=== PATIENT | female | born 1955 | race Caucasian/White ===

== ENCOUNTER 2023-09-24 08:33 | Day surgery (SDC) | payer OTHER, SELFPAY ==
[2023-09-24 08:58] VITALS: BP 121/58; PULSE 76; RESP 18; TEMP 36.2; O2SAT 99
[2023-09-24] MEDS: LACTATED RINGERS 1,000 ML 42 ML IV (09:05)
--- NOTE | 2023-09-24 09:25 | PM.HP.1 ---
History of Present Illness History of Present Illness Date Patient Seen: 09/24/23 Chief complaint: EGD Narrative: History of cirrhosis with need for variceal screening and possible banding [facility] Medical History (Updated 09/24/23 @ 08:09 by Angie Magallon, RN) Gallstones Normal colonoscopy Normocytic anemia Alcoholic cirrhosis Hepatitis B Family History (Updated 09/24/23 @ 08:13 by Angie Magallon, RN) Other Colon cancer Stomach cancer Social History Smoking Status: Never smoker alcohol intake: never Meds Home Medications and Allergies Home Medications Medication Instructions Recorded Confirmed Type ibuprofen 600 mg PO PRN PRN Pain (Scale 09/24/23 09/24/23 History Score 1-3) milk thistle 1 tab PO DAILY 09/24/23 09/24/23 History vit D3-folic [id number] 1 tab PO DAILY 09/24/23 09/24/23 History vitamin E 1 tab PO DAILY 09/24/23 09/24/23 History Allergies Allergy/AdvReac Type Severity Reaction Status Date / Time sulfamethoxazole Allergy Mild Hives Verified 09/24/23 08:57 [From Bactrim] trimethoprim [From Bactrim] Allergy Mild Hives Verified 09/24/23 08:57 Exam Vital Signs (past 8 hours): - 09/24/23 08:58 Temperature 97.1 F L Pulse Rate 76 Respiratory Rate 18 Blood Pressure 121/58 L Pulse Oximetry 99 Oxygen Delivery Method Room Air Oxygen Delivery Method Room Air Narrative Exam Narrative: Oropharynx free of lesions Chest clear to auscultation percussion Cardiac exam reveals no S3 or murmur Assessment & Plan Assessment & Plan narrative: History of cirrhosis need for variceal screening risks, benefits, alternatives have been explained. Banding to be performed if medium to large varices are found.
--- NOTE | 2023-09-24 09:26 | P.OP.EGD_ITS ---
Operative Date/Time/Diagnoses Date of procedure: 09/24/23 Pre-op diagnosis: See indication and findings Procedure & Clinicians Study performed: EGD Indications: Cirrhosis, assessment for variceal banding Surgeon: Mya Partida Procedure Notes Procedure in detail: After informed consent was obtained the patient was placed in left lateral decubitus position. The video upper scope was placed into the oropharynx and with the patient's help swallowed into the esophagus. The esophagus stomach and duodenum were carefully examined. On withdrawal, retroflexed view the GE junction was performed. The scope was removed. The patient tolerated procedure well. Blood loss none Complications none Sedation mac Findings 1. Normal esophagus 2. Streaky gastric erythema particularly in the antrum biopsies taken to rule out Helicobacter 3. Normal duodenal bulb and sweep Will await biopsy results. Patient should try famotidine 40 mg p.o. q.day and follow-up with her primary GI provider through the [facility]
[2023-09-24 10:08] VITALS: BP 124/63; PULSE 86; RESP 17; TEMP 36.5; O2SAT 98
[2023-09-24 10:14] VITALS: BP 114/65; PULSE 83; RESP 16; O2SAT 100
[2023-09-24 10:18] VITALS: BP 114/58; PULSE 84; RESP 13; O2SAT 100
[2023-09-24 10:25] VITALS: BP 121/60; PULSE 81; RESP 16; TEMP 36.6; O2SAT 99
--- NOTE | 2023-09-24 10:30 | SUR.PHASEII ---
Unable to discharge pt at this time. Awaiting report and disposition from Dr Partida.
--- NOTE | 2023-09-24 10:38 | PM.OP.EGD ---
Operative Date/Time/Diagnoses Date of procedure: 09/24/23 Pre-op diagnosis: See indication and findings Procedure & Clinicians Study performed: EGD Indications: Cirrhosis rule out esophageal Surgeon: Mya Partida Procedure Notes Procedure in detail: After informed consent was obtained the patient was placed in left lateral decubitus position. The video upper scope was placed into the oropharynx and with the patient's help swallowed into the esophagus. The esophagus stomach and duodenum were carefully examined. On withdrawal, retroflexed view the GE junction was performed. The scope was removed. The patient tolerated procedure well. Blood loss none Complications none Sedation mac Findings 1. Normal esophagus with perhaps this slightest hint of grade 1 varices 2. Normal stomach without evidence of gastric varices 3. Normal duodenal bulb and sweep Patient should follow-up via hepatology and our office. Follow-up EGD should be in 1 year
== END 2023-09-24 10:44 | disposition home or self-care (01) ==
PROVIDERS: PCP Physician Assistant; Referring Provider Internal Medicine Gastroenterology; Visit Provider Internal Medicine Gastroenterology
PROC: 0DJ08ZZ Inspection of Upper Intestinal Tract, Via Natural or Artificial Opening Endoscopic (ICD-10-PCS; CPT 43235; principal; 2023-09-24 09:30)
DX: K70.30 Alcoholic cirrhosis of liver without ascites (principal); D64.9 Anemia, unspecified; F10.20 Alcohol dependence, uncomplicated
CPT/HCPCS: 43235; J2704

== ENCOUNTER → 2024-02-04 10:59 | Outpatient (CLI) | payer OTHER, SELFPAY | LOC: WC 11:04 | PROVIDERS: PCP Physician Assistant; Referring Provider Physician Assistant; Visit Provider Surgery | DX: T81.89XA Other complications of procedures, not elsewhere classified, initial encounter (principal); S81.801A Unspecified open wound, right lower leg, initial encounter; D68.4 Acquired coagulation factor deficiency; R60.0 Localized edema | CPT/HCPCS: 11042; 87070; 87075; 87077; 87186; 87205; 99203; 99214 ==

== ENCOUNTER → 2024-02-12 15:28 | Outpatient (CLI) | payer OTHER, SELFPAY | PROVIDERS: PCP Physician Assistant; Referring Provider Physician Assistant; Visit Provider Surgery | DX: T81.41XA Infection following a procedure, superficial incisional surgical site, initial encounter (principal); S81.801A Unspecified open wound, right lower leg, initial encounter; L98.8 Other specified disorders of the skin and subcutaneous tissue; L08.89 Other specified local infections of the skin and subcutaneous tissue; R60.0 Localized edema | CPT/HCPCS: 11042 ==

== ENCOUNTER → 2024-02-16 10:59 | Outpatient (CLI) | payer OTHER, SELFPAY | PROVIDERS: PCP Physician Assistant; Referring Provider Physician Assistant; Visit Provider Surgery | DX: S81.801A Unspecified open wound, right lower leg, initial encounter (principal); L98.8 Other specified disorders of the skin and subcutaneous tissue; R60.0 Localized edema; K74.60 Unspecified cirrhosis of liver; D68.4 Acquired coagulation factor deficiency | CPT/HCPCS: 11042 ==

== ENCOUNTER → 2024-02-25 10:45 | Outpatient (CLI) | payer OTHER, SELFPAY | PROVIDERS: PCP Physician Assistant; Referring Provider Physician Assistant; Visit Provider Surgery | DX: S81.801A Unspecified open wound, right lower leg, initial encounter (principal); L98.8 Other specified disorders of the skin and subcutaneous tissue; R60.0 Localized edema; K70.30 Alcoholic cirrhosis of liver without ascites; D68.4 Acquired coagulation factor deficiency | CPT/HCPCS: 11042 ==

== ENCOUNTER → 2024-02-27 06:48 | Outpatient (CLI) | payer OTHER, SELFPAY ==
--- NOTE | 2024-02-27 07:00 | DI.US.S_ITS ---
PROCEDURE: US ARTERIAL DUPLEX LE RT INDICATIONS: NON-HEALING ULCER RIGHT CALF TECHNIQUE: Color and pulse Doppler interrogation was performed of the right lower extremity arterial system, with image documentation. COMPARISON: None. FINDINGS: Triphasic waveforms are seen throughout with normal velocities and no postobstructive waveforms including the imaged common femoral, deep femoral, superficial femoral, popliteal posterior tibial and anterior tibial arteries. Mild any atherosclerotic plaque seen IMPRESSION: No hemodynamically significant stenosis seen Dictated by: Danny Baker M.D. on 02/27/2024 at 14:55 Approved by: Danny Baker M.D. on 02/27/2024 at 14:57
== END ==
LOC: US 06:49
PROVIDERS: PCP Physician Assistant; Referring Provider Surgery; Visit Provider Surgery
DX: L97.919 Non-pressure chronic ulcer of unspecified part of right lower leg with unspecified severity (principal)
CPT/HCPCS: 93926

== ENCOUNTER 2024-03-02 20:19 | Inpatient (IN) | payer OTHER, MEDICARE, SELFPAY ==
[2024-03-02] VITALS (18 sets, daily range): BP systolic 93–119; BP diastolic 44–56; PULSE 81–94; RESP 12–19; TEMP 37.4–39.1; O2SAT 94–98; BMI 34.5
--- NOTE | 2024-03-02 20:22 | ED_ITS ---
HPI - Sepsis General Chief Complaint: Fever Evaluation Sepsis Infection Criteria Present: Suspected New Infection Sepsis Onset Time: 18:00 Associated Symptoms: fever and other (altered mental status) Narrative: 68-year-old female with history of alcoholic cirrhosis with grade 1 esophageal varices presents by EMS from home for altered mental status. History is obtained by EMS as patient is lethargic and opens her eyes to voice, but is very slow to respond to questions and frequently drifts off in the middle of conversation. EMS states that has been appeared to be quite intoxicated when they arrived at the residence. The has been told him that in the last 3 hours patient's mental status had precipitously declined. Patient was obviously jaundiced, told EMS that this is the patient's normal color. EMS measured an oral temperature of 101? EN route. Patient History Medical History Gallstones Normal colonoscopy Normocytic anemia Alcoholic cirrhosis Hepatitis B Family History Other Colon cancer Stomach cancer Social History household members: spouse and children Smoking Status: Never smoker alcohol intake: never Smoking Status: Never smoker Substance Use Type: does not use Exam Initial Vital Signs Initial Vital Signs: Vital Signs Pulse Rate 94 H 03/02/24 20:22 Blood Pressure 109/49 L 03/02/24 20:22 Pulse Oximetry 95 03/02/24 20:22 Const: Somnolent, arouses to voice, ill-appearing, obviously jaundiced, edematous Eyes: EOMI, obvious scleral icterus Cardiac: regular rate, regular rhythm RESP: unlabored, clear bilaterally, no wheezing GI: Soft, nontender, nondistended MSK: 5 x 2 x 1 cm wound in right lower extremity with granulated tissue, no surrounding erythema. Diffuse anasarca Skin: Warm, Dry, wound in right lower extremity as described above, no surrounding erythema or fluctuance to suggest acute infection Neuro: AO x1, CN II-XII grossly intact, moves all extremities Course Orders Ordered: ED Orders 03/02/24 20:22 CT head/brain wo con Stat XR chest 1V Stat EKG-12 Lead Stat 03/02/24 20:24 Ammonia (NH3) Stat 03/02/24 20:30 Complete Blood Count AUTO DIFF Stat Comprehensive Metabolic Panel Stat Ethanol (ETOH) Stat Lactate (Lactic Acid) Stat NT-proBNP (BNP-Adult 18+) Stat PTT Partial Thromboplastin Sukh Stat Procalcitonin Stat Prothrombin Time INR Stat Troponin & CK Cardiac Panel Stat 03/02/24 20:35 Respiratory Panel (Film Array) Stat 03/02/24 20:44 CT abdomen pelvis w con Stat 03/02/24 21:04 Ictotest Urine Stat Urinalysis and Microscopic Stat Urine Culture Stat 03/02/24 21:18 Blood Culture Stat Sodium Chloride (Normal Saline 0.9%) 1,000 mls @ 100 mls/hr IV CONT TONY Last Admin: 03/03/24 02:34 Dose: 100 mls/hr Documented By: MARY Ceftriaxone Sodium 2,000 mg/ (Sodium Chloride) 100 mls @ 200 mls/hr IV Q24H TONY Naloxone HCl (Naloxone 0.4 Mg/Ml Vial) 0.2 mg IV Q2MIN PRN PRN Reason: Opiate Reversal Discontinued Medications Acetaminophen (Acetaminophen 325 Mg Tablet) 650 mg PO NOW ONE Stop: 03/02/24 20:36 Last Admin: 03/02/24 21:10 Dose: 650 mg Documented By: RICHARD Furosemide (Furosemide 40 Mg/4 Ml Vial) 40 mg IV NOW ONE Stop: 03/02/24 21:51 Last Admin: 03/02/24 22:07 Dose: 40 mg Documented By: RICHARD Ceftriaxone Sodium 2,000 mg/ (Sodium Chloride) 100 mls @ 200 mls/hr IV NOW ONE Stop: 03/02/24 20:23 Last Infusion: 03/02/24 22:19 Dose: Infused Documented By: Admin: 03/02/24 21:40 Dose: 200 mls/hr Documented By: RICHARD Vital Signs Vital signs: Vital Signs - 8 hr 03/02/24 20:22 03/02/24 20:22 03/02/24 20:26 Temperature 102.3 F H Pulse Rate 94 H 94 H Respiratory Rate 17 Blood Pressure 109/49 L 109/49 L Pulse Oximetry 95 94 Oxygen Delivery Method Room Air 03/02/24 20:30 03/02/24 21:00 03/02/24 21:06 Temperature Pulse Rate 92 H 86 Respiratory Rate 19 15 Blood Pressure 119/56 L Pulse Oximetry 95 98 Oxygen Delivery Method 03/02/24 21:06 03/02/24 21:10 03/02/24 21:30 Temperature 102.3 F H Pulse Rate 90 90 Respiratory Rate 16 Blood Pressure Pulse Oximetry 98 96 Oxygen Delivery Method 03/02/24 21:43 03/02/24 21:43 03/02/24 21:45 Temperature Pulse Rate 86 Respiratory Rate 15 Blood Pressure 107/51 L 98/47 L Pulse Oximetry 94 Oxygen Delivery Method 03/02/24 21:45 03/02/24 22:00 03/02/24 22:00 Temperature Pulse Rate 86 86 Respiratory Rate 16 14 Blood Pressure 98/46 L Pulse Oximetry 97 96 Oxygen Delivery Method 03/02/24 22:15 03/02/24 22:15 03/02/24 22:18 Temperature 99.3 F Pulse Rate 85 Respiratory Rate 14 Blood Pressure 98/47 L Pulse Oximetry 98 Oxygen Delivery Method 03/02/24 22:30 03/02/24 22:30 03/02/24 22:45 Temperature Pulse Rate 83 84 Respiratory Rate 14 14 Blood Pressure 95/45 L Pulse Oximetry 97 96 Oxygen Delivery Method 03/02/24 22:45 03/02/24 23:00 03/02/24 23:00 Temperature Pulse Rate 82 Respiratory Rate 14 Blood Pressure 94/44 L 93/44 L Pulse Oximetry 97 Oxygen Delivery Method 03/02/24 23:15 03/02/24 23:15 03/02/24 23:30 Temperature Pulse Rate 82 82 Respiratory Rate 12 13 Blood Pressure 98/46 L Pulse Oximetry 96 97 Oxygen Delivery Method Room Air 03/02/24 23:30 03/02/24 23:45 03/02/24 23:45 Temperature Pulse Rate 81 Respiratory Rate 13 Blood Pressure 96/46 L 95/44 L Pulse Oximetry 97 Oxygen Delivery Method 03/03/24 00:00 03/03/24 00:00 03/03/24 00:15 Temperature Pulse Rate 81 Respiratory Rate 12 Blood Pressure 96/46 L 100/46 L Pulse Oximetry 96 Oxygen Delivery Method Room Air 03/03/24 00:15 03/03/24 00:30 03/03/24 00:30 Temperature 98.3 F Pulse Rate 80 80 Respiratory Rate 13 14 Blood Pressure 99/47 L Pulse Oximetry 97 95 Oxygen Delivery Method Room Air Room Air 03/03/24 00:45 09/11/24 00:45 Temperature Pulse Rate 80 Respiratory Rate Blood Pressure 93/44 L Pulse Oximetry 96 Oxygen Delivery Method Room Air Sepsis Evaluation (ED) Level 1 - Infection Sepsis Infection Criteria Present: Suspected New Infection Level 2 - SIRS Sepsis SIRS Criteria Present: Temperature > 101.0 or < 96.8 F, WBC < 4k or > 12k or Bands > 10% and Pulse > 90 bpm Response It is my opinion that his patient have a likely infectious etiology for meeting sepsis criteria: Does Fluid calculation based on 30 mL/kg within 1hr of criteria: N/A Antibiotics initiated within 1 hr of Sepis dx: Yes Tissue Perfusion Reassessed within 6 hrs of infusion start time: Yes Date of Tissue Perfusion Reassessment completed: 03/02/24 Time Tissue Perfusion Reassessment completed: 22:00 MDM - Sepsis Differential Diagnosis Possible source sepsis: pulmonary, genitourinary and wound Lab Data 03/02/24 20:30 03/02/24 20:30 Labs: Lab Results 03/02/24 03/02/24 03/02/24 Range/Units 20:24 20:30 20:35 WBC 17.2 H (4.5-11.0) X10^3/uL RBC 1.96 L (4.0-5.2) X10^6/uL Hgb 8.4 L (12.0-16.0) g/dL Hct 23.4 L (36-46) % MCV 119.3 H (80-100) fL MCH 43.0 H (26-34) PG MCHC 36.0 (30-36) % RDW 15.5 H (11.6-14.8) % Plt Count 96 L (150-400) X10^3/uL Neut % (Auto) Not Reportable Lymph % (Auto) Not Reportable Grant % (Auto) Not Reportable Eos % (Auto) Not Reportable Baso % (Auto) Not Reportable Lymph # (Auto) Not Reportable Grant # (Auto) Not Reportable Baso # (Auto) Not Reportable Total Counted 100 Seg Neutrophils % 86.0 H (38-70) % Band Neutrophils % 7.0 (3-7) % Lymphocytes % (Manual) 4.0 L (25-45) % Eosinophils % (Manual) 1.0 L (2-4) % Metamyelocytes % 2.0 H (-0) % Neutrophils # (Manual) 38141 H (4811-2643) /uL RBC Morphology See below Macrocytosis 2+ H PT 24.3 H (9.4-12.5) SECONDS INR 2.1 H (0.9-1.3) APTT 39 H (25.1-36.5) SECONDS Sodium 119 L* (137-145) mmol/L Potassium 5.1 (3.4-5.1) mmol/L Chloride 91 L (98-107) mmol/L Carbon Dioxide 25 (22-32) mmol/L BUN 27 H (7-17) mg/dL Creatinine 0.58 (0.52-1.04) mg/dL Estimated GFR > 60 (>60) mL/min BUN/Creatinine Ratio 46.6 H (6-22) Glucose 95 (80-110) mg/dL Lactate 1.6 (0.7-2.1) mmol/L Calcium 8.9 (8.4-10.2) mg/dL Total Bilirubin 17.4 H (0.2-1.3) mg/dL AST 72 H (14-36) IU/L ALT 39 H (<35) IU/L Alkaline Phosphatase 110 (38-126) U/L Ammonia 15 (9-30) umol/L Total Creatine Kinase 33 (30-135) U/L Troponin I 0.013 (0.01-0.034) ng/mL NT-Pro-B Natriuret Pep 559 H (<125) pg/mL Total Protein 6.8 (6.3-8.2) g/dL Albumin 3.1 L (3.5-5.0) g/dL Globulin 3.7 (1.7-4.1) g/dL Albumin/Globulin Ratio 0.8 L (1.0-2.8) Procalcitonin 0.357 (<0.5) ng/mL Urine Color Urine Appearance Urine pH (4.5-8.0) Ur Specific [place] (1.000-1.035) Urine Protein (Negative) Urine Glucose (UA) (Negative) g/dL Urine Ketones (NEGATIVE) Urine Occult Blood (Negative) Urine Nitrate (Negative) Urine Bilirubin (NEGATIVE) Ur Bilirubin Confirm (Negative) Urine Urobilinogen (0.2) E.U./dL Ur Leukocyte Esterase (NEGATIVE) Urine RBC (0-5/HPF) Urine WBC (0-5/HPF) Ur Squamous Epith Cells (0-5/HPF) Urine Bacteria (None) Ur Culture Indicated? Vol Urine Centrifuged Ethyl Alcohol < 10 ( - 10) mg/dL Chlamy pneumoniae PCR Not detected (Not Detect) Adenovirus (PCR) Not detected (Not Detect) B.parapertussis DNA PCR Not detected (Not Detecte) Coronavirus OC43 (PCR) Not detected (Not Detect) Coronavirus HKU1 (PCR) Not detected (Not Detect) Coronavirus 229E (PCR) Not detected (Not Detect) SARS-CoV-2 (PCR) Detected H (Not Detecte) Coronavirus NL63 (PCR) Not detected (Not Detect) Human Metapneumovir PCR Not detected (Not Detect) Influenza Type A (PCR) Not detected (Not Detect) Influenza Type B (PCR) Not detected (Not Detect) M. pneumoniae (PCR) Not detected (Not Detect) Parainfluenza 1 (PCR) Not detected (Not Detect) Parainfluenza 2 (PCR) Not detected (Not Detect) Parainfluenza 3 (PCR) Not detected (Not Detect) Parainfluenza 4 (PCR) Not detected (Not Detect) RSV (PCR) Not detected (Not Detect) Entero/Rhino (PCR) Not detected (Not Detect) 03/02/24 Range/Units 21:04 WBC (4.5-11.0) X10^3/uL RBC (4.0-5.2) X10^6/uL Hgb (12.0-16.0) g/dL Hct (36-46) % MCV (80-100) fL MCH (26-34) PG MCHC (30-36) % RDW (11.6-14.8) % Plt Count (150-400) X10^3/uL Neut % (Auto) Lymph % (Auto) Grant % (Auto) Eos % (Auto) Baso % (Auto) Lymph # (Auto) Grant # (Auto) Baso # (Auto) Total Counted Seg Neutrophils % (38-70) % Band Neutrophils % (3-7) % Lymphocytes % (Manual) (25-45) % Eosinophils % (Manual) (2-4) % Metamyelocytes % (-0) % Neutrophils # (Manual) (7162-8922) /uL RBC Morphology Macrocytosis PT (9.4-12.5) SECONDS INR (0.9-1.3) APTT (25.1-36.5) SECONDS Sodium (137-145) mmol/L Potassium (3.4-5.1) mmol/L Chloride (98-107) mmol/L Carbon Dioxide (22-32) mmol/L BUN (7-17) mg/dL Creatinine (0.52-1.04) mg/dL Estimated GFR (>60) mL/min BUN/Creatinine Ratio (6-22) Glucose (80-110) mg/dL Lactate (0.7-2.1) mmol/L Calcium (8.4-10.2) mg/dL Total Bilirubin (0.2-1.3) mg/dL AST (14-36) IU/L ALT (<35) IU/L Alkaline Phosphatase (38-126) U/L Ammonia (9-30) umol/L Total Creatine Kinase (30-135) U/L Troponin I (0.01-0.034) ng/mL NT-Pro-B Natriuret Pep (<125) pg/mL Total Protein (6.3-8.2) g/dL Albumin (3.5-5.0) g/dL Globulin (1.7-4.1) g/dL Albumin/Globulin Ratio (1.0-2.8) Procalcitonin (<0.5) ng/mL Urine Color Yellow Urine Appearance Clear Urine pH 5.0 (4.5-8.0) Ur Specific [place] 1.010 (1.000-1.035) Urine Protein Negative (Negative) Urine Glucose (UA) Negative (Negative) g/dL Urine Ketones Negative (NEGATIVE) Urine Occult Blood Trace-intact (Negative) Urine Nitrate Positive H (Negative) Urine Bilirubin 2+ H (NEGATIVE) Ur Bilirubin Confirm Positive H (Negative) Urine Urobilinogen 2.0 H (0.2) E.U./dL Ur Leukocyte Esterase Negative (NEGATIVE) Urine RBC 0-1/hpf (0-5/HPF) Urine WBC 0-1/hpf (0-5/HPF) Ur Squamous Epith Cells 0-1 /hpf (0-5/HPF) Urine Bacteria Occasional (0-1) (None) Ur Culture Indicated? Specimen cultured Vol Urine Centrifuged 10ml (spun) Ethyl Alcohol ( - 10) mg/dL Chlamy pneumoniae PCR (Not Detect) Adenovirus (PCR) (Not Detect) B.parapertussis DNA PCR (Not Detecte) Coronavirus OC43 (PCR) (Not Detect) Coronavirus HKU1 (PCR) (Not Detect) Coronavirus 229E (PCR) (Not Detect) SARS-CoV-2 (PCR) (Not Detecte) Coronavirus NL63 (PCR) (Not Detect) Human Metapneumovir PCR (Not Detect) Influenza Type A (PCR) (Not Detect) Influenza Type B (PCR) (Not Detect) M. pneumoniae (PCR) (Not Detect) Parainfluenza 1 (PCR) (Not Detect) Parainfluenza 2 (PCR) (Not Detect) Parainfluenza 3 (PCR) (Not Detect) Parainfluenza 4 (PCR) (Not Detect) RSV (PCR) (Not Detect) Entero/Rhino (PCR) (Not Detect) Imaging Data Chest x-ray: Radiologist's Impression: PROCEDURE: XR CHEST 1V INDICATIONS: sepsis/ams TECHNIQUE: One view of the chest was acquired. COMPARISON: Outside Film, CR, XR CHEST 1 VIEW, 07/08/2023, 19:51. FINDINGS: Surgical changes and devices: None. Lungs and pleura: There is pulmonary vascular congestion. Blunting of right costophrenic angle is seen, suggestive of small right pleural effusion. Ill- defined airspace opacities in bilateral perihilar and infrahilar region are seen concerning for bilateral multilobar infiltrates. No pneumothorax. Mediastinum: Mediastinal contours appear normal. Heart size is enlarged. Bones and chest wall: No suspicious bony lesions. Overlying soft tissues appear unremarkable. IMPRESSION: Cardiomegaly and mild congestion with small right pleural effusion and suggestion of bilateral perihilar and infrahilar infiltrates. No pneumothorax. Dictated by: Jared Dykes M.D. on 03/02/2024 at 20:57 Approved by: Jared Dykes M.D. on 03/02/2024 at 20:58 CT scan - head: Radiologist's Impression: PROCEDURE: CT HEAD/BRAIN WO CON INDICATIONS: AMS TECHNIQUE: Noncontrast 4.5 mm thick angled axial sections acquired from the foramen magnum to the vertex, with coronal and sagittal reformats. For radiation dose reduction, the following was used: automated exposure control, adjustment of mA and/or kV according to patient size. COMPARISON: Outside Film, CT, CT HEAD WITHOUT CONTRAST, 07/09/2023, 1:20. FINDINGS: Image quality: Diagnostic. CSF spaces: Basal cisterns are patent. No extra-axial fluid collections. The ventricles are symmetric in size and shape. Brain: No intracranial bleeds or masses. There is cerebral volume loss for age, with resultant ventricular and sulcal prominence. There are periventricular and deep white matter chronic small vessel ischemic changes. There is intracranial internal carotid artery atherosclerosis. Skull and face: Calvarium and visualized facial bones appear intact, without suspicious lesions. Sinuses: Visualized sinuses and mastoids are clear. IMPRESSION: No acute intracranial pathology. Dictated by: Jared Dykes M.D. on 03/02/2024 at 22:34 Approved by: Jared Dykes M.D. on 03/02/2024 at 22:35 CT scan - abdomen/pelvis: Radiologist's Impression: PROCEDURE: CT ABDOMEN PELVIS W CON INDICATIONS: jaundice, ams, ascites? TECHNIQUE: After the administration of intravenous contrast, axial sections acquired from the lung bases to the pubic symphysis. Coronal and sagittal reformats were performed. For radiation dose reduction, the following was used: automated exposure control, adjustment of mA and/or kV according to patient size. COMPARISON: Outside Film, CT, CT ABDOMEN PELVIS WITH CONTRAST, 07/09/2023, 1:22. [facility], CT, CT ABDOMEN PELVIS WITH CONTRAST, 02/22/2024, 12:42. FINDINGS: Image quality: Diagnostic. Lower Chest: Small right pleural effusion is seen, with adjacent right basilar dependent atelectasis. Heart size is enlarged, no pericardial effusion. ABDOMEN: Liver: Again noted are well-circumscribed hypodensities seen scattered in liver parenchyma unchanged in size and appearance from prior studies likely represent hepatic cysts. Lobulated liver contour is seen suggestive of cirrhosis. Gallbladder: Multiple calcified small stones are again noted in dependent portion of gallbladder lumen with gallbladder wall thickening and pericholecystic fluid. Biliary ducts: No biliary dilation. Pancreas: No pancreatic ductal dilatation. Spleen: Size is within normal limits. Adrenal Glands: No adrenal nodules. Kidneys and Ureters: No hydronephrosis. No solid mass. No complex renal cystic lesion which requires follow up. Tiny nonobstructing right renal calculi are seen. Stomach and Bowel: There is no bowel obstruction. No abnormal bowel wall thickening or mesenteric fat stranding. [id number] fecal stasis in the colon is seen. No abscess collection. Peritoneum: No abnormal intraperitoneal fluid. No free air. Ventral Wall: No significant ventral hernia. Generalized anasarca is seen. Abdominal Nodes: No retroperitoneal or mesenteric adenopathy by size criteria. Vessels: Aorta and inferior vena cava are normal in size. Sequelae of cirrhosis is again seen with multiple upper abdominal varices unchanged from prior studies. PELVIS: Pelvic Organs: Unremarkable. Bladder: Fisher catheter is seen in a decompressed urinary bladder. Pelvic Nodes: No enlarged lymph nodes. Miscellaneous: No inguinal hernias are seen. Bones: No aggressive osseous abnormality. IMPRESSION: 1. Cirrhosis with portal hypertension. Multiple likely hepatic cysts unchanged from prior study. 2. Distended gallbladder with multiple gallstones and gallbladder wall thickening as well as pericholecystic fluid unchanged from previous study and is concerning for cholecystitis. Clinical correlation is recommended. 3. Generalized anasarca suggestive of 3rd spacing new since previous study. 4. No bowel obstruction or abnormal bowel wall thickening. No abscess collection. No free fluid or free air. [id number] constipation. No significant ascites fluid. Dictated by: Jared Dykes M.D. on 03/02/2024 at 22:36 Approved by: Jared Dykes M.D. on 03/02/2024 at 22:44 ECG Data Interpretation: Normal sinus rhythm at 85 beats per minute, normal IA, no STEMI MDM Narrative Medical decision making narrative: Very unwell appearing patient with fever and altered mental status for 3 hours. EMS states that told them patient gets her care here at [facility], however there are no previous records and patient currently unable to answer where she has gotten care previously. Patient was obviously jaundiced and edematous. Febrile on arrival with heart rate over 90. Sepsis alert initiated on arrival, broad-spectrum antibiotic coverage with Rocephin ordered. Fluids to be held due to diffuse edema and suspected volume overload. Laboratory work shows WBC count 17.2, hemoglobin 8.4, platelet count 96, INR 2.1, sodium 119, potassium 5.1, creatinine 0.58, T bili 17.4, AST 72, ALT 39, alkaline phosphatase 110, ammonia 15. BNP 5 5 9, procalcitonin 0.357. Chest x- ray shows cardiomegaly and volume overload. CT brain shows no acute abnormalities. CT of the abdomen and pelvis shows distended gallbladder with gallstones ?unchanged from previous study?. Clinical correlation recommended. After fever controlled and antibiotics administered patient is now much more awake and is now responding appropriately to questions. Patient denies any pain whatsoever, and repeat abdominal exam is soft, no reproducible tenderness to palpation. No clinical suspicion for cholecystitis at this time. Patient is now able to tell me that her primary care doctor is through [facility] and that she sees GI doctor Jarrett through [place]. We will attempt to get records to see chronicity of patient's laboratory derangements. 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 Extensive records reviewed from [facility], [facility], and [place]. Most recent laboratory work from 02/22/2024 showed sodium 126, T bili 16, AST 82, ALT 44, alk phos 142, WBC count 9.6, hemoglobin 8.1, INR 1.8, platelet count 91. Patient's sodium does appear to be changed, after going through records patient's baseline sodium appears to be upper 120s, 119 is low for patient. Based on the extensive edema and anasarca seen on CT imaging suspect hypervolemic hyponatremia. Lasix ordered. Patient to be admitted for further treatment of her condition Critical Care Time Critical Care Time Critical Care Time: Yes Total Critical Care Time: 42 Attestation: Liver failure and volume overload with hyponatremia requiring diuresing fluids, extensive record review, frequent hemodynamic reassessments Discharge Plan Departure Patient Disposition: Admitted As Inpatient Clinical Impression: Acute hyponatremia, Jaundice, COVID-19 Admit Date/Time: 03/03/24 00:50 Admit Provider: Tito Daniels
--- NOTE | 2024-03-02 20:22 | EKG_ITS ---
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
--- NOTE | 2024-03-02 20:44 | DI.CT.S_ITS ---
PROCEDURE: CT ABDOMEN PELVIS W CON INDICATIONS: jaundice, ams, ascites? TECHNIQUE: After the administration of intravenous contrast, axial sections acquired from the lung bases to the pubic symphysis. Coronal and sagittal reformats were performed. For radiation dose reduction, the following was used: automated exposure control, adjustment of mA and/or kV according to patient size. COMPARISON: Outside Film, CT, CT ABDOMEN PELVIS WITH CONTRAST, 07/09/2023, 1:22. [facility], CT, CT ABDOMEN PELVIS WITH CONTRAST, 02/22/2024, 12:42. FINDINGS: Image quality: Diagnostic. Lower Chest: Small right pleural effusion is seen, with adjacent right basilar dependent atelectasis. Heart size is enlarged, no pericardial effusion. ABDOMEN: Liver: Again noted are well-circumscribed hypodensities seen scattered in liver parenchyma unchanged in size and appearance from prior studies likely represent hepatic cysts. Lobulated liver contour is seen suggestive of cirrhosis. Gallbladder: Multiple calcified small stones are again noted in dependent portion of gallbladder lumen with gallbladder wall thickening and pericholecystic fluid. Biliary ducts: No biliary dilation. Pancreas: No pancreatic ductal dilatation. Spleen: Size is within normal limits. Adrenal Glands: No adrenal nodules. Kidneys and Ureters: No hydronephrosis. No solid mass. No complex renal cystic lesion which requires follow up. Tiny nonobstructing right renal calculi are seen. Stomach and Bowel: There is no bowel obstruction. No abnormal bowel wall thickening or mesenteric fat stranding. [id number] fecal stasis in the colon is seen. No abscess collection. Peritoneum: No abnormal intraperitoneal fluid. No free air. Ventral Wall: No significant ventral hernia. Generalized anasarca is seen. Abdominal Nodes: No retroperitoneal or mesenteric adenopathy by size criteria. Vessels: Aorta and inferior vena cava are normal in size. Sequelae of cirrhosis is again seen with multiple upper abdominal varices unchanged from prior studies. PELVIS: Pelvic Organs: Unremarkable. Bladder: Fisher catheter is seen in a decompressed urinary bladder. Pelvic Nodes: No enlarged lymph nodes. Miscellaneous: No inguinal hernias are seen. Bones: No aggressive osseous abnormality. IMPRESSION: 1. Cirrhosis with portal hypertension. Multiple likely hepatic cysts unchanged from prior study. 2. Distended gallbladder with multiple gallstones and gallbladder wall thickening as well as pericholecystic fluid unchanged from previous study and is concerning for cholecystitis. Clinical correlation is recommended. 3. Generalized anasarca suggestive of 3rd spacing new since previous study. 4. No bowel obstruction or abnormal bowel wall thickening. No abscess collection. No free fluid or free air. [id number] constipation. No significant ascites fluid. Dictated by: Jared Dykes M.D. on 03/02/2024 at 22:36 Approved by: Jared Dykes M.D. on 03/02/2024 at 22:44
[2024-03-02 20:52] LABS: INR 2.1 (0.9-1.3); Prothrombin Time 24.3 SECONDS (9.4-12.5)
[2024-03-02 20:53] LABS: Hematocrit 23.4 % (36-46); Hemoglobin 8.4 g/dL (12.0-16.0); Mean Corpuscular Volume 119.3 fL (80-100); Platelet Count 96 X10^3/uL (150-400); Red Blood Cell Count 1.96 X10^6/uL (4.0-5.2); Red Cell Distribution Width 15.5 % (11.6-14.8); White Blood Cell Count 17.2 X10^3/uL (4.5-11.0)
[2024-03-02 20:59] LABS: PTT Partial Thromboplastin Tim 39 SECONDS (25.1-36.5)
[2024-03-02 21:03] LABS: Ammonia (NH3) 15 umol/L (9-30)
[2024-03-02 21:03] LABS: Lactate (Lactic Acid) 1.6 mmol/L (0.7-2.1)
[2024-03-02 21:05] LABS: Alanine Aminotransferase 39 IU/L (<35); Albumin 3.1 g/dL (3.5-5.0); Albumin Globulin Ratio 0.8 (1.0-2.8); Alkaline Phosphatase 110 U/L (38-126); Aspartate Aminotransferase 72 IU/L (14-36); BUN Creatinine Ratio 46.6 (6-22); Bilirubin Total 17.4 mg/dL (0.2-1.3); Blood Urea Nitrogen 27 mg/dL (7-17); Calcium 8.9 mg/dL (8.4-10.2); Carbon Dioxide 25 mmol/L (22-32); Chloride 91 mmol/L (98-107); Creatine Kinase 33 U/L (30-135); Estimated Glomerular Filt Rate > 60 mL/min (>60); Ethanol (ETOH) < 10 mg/dL; Globulin 3.7 g/dL (1.7-4.1); Glucose 95 mg/dL (80-110); HEMOLYSIS < 15 (0-50); Potassium 5.1 mmol/L (3.4-5.1); Total Protein 6.8 g/dL (6.3-8.2)
[2024-03-02 21:08] LABS: Sodium 119 mmol/L (137-145)
[2024-03-02 21:09] LABS: Add Manual Diff / Slide Review YES
[2024-03-02] MEDS: ACETAMINOPHEN 325 MG TABLET 650 MG PO (21:10)
[2024-03-02 21:11] LABS: Macrocytosis 2+; Neutrophils Absolute Manual 15996 /uL (3000-5900); Total Cells Counted 100
[2024-03-02 21:15] LABS: NT-proBNP (BNP-Adult 18+) 559 pg/mL (<125); Troponin I 0.013 ng/mL (0.01-0.034)
[2024-03-02 21:20] LABS: Procalcitonin 0.357 ng/mL (<0.5)
[2024-03-02 21:22] LABS: Appearance Urine UA CLEAR; Bilirubin Urine UA 2+ (NEGATIVE); Color Urine UA YELLOW; Glucose Urine UA NEGATIVE (Negative); Ketones Urine UA NEGATIVE (NEGATIVE); Leukocyte Esterase Urine UA NEGATIVE (NEGATIVE); Occult Blood Urine UA TRACE-INTACT (Negative); Protein Urine UA NEGATIVE (Negative)
[2024-03-02 21:32] LABS: Adenovirus Not Detected (Not Detect); B. parapertussis Not Detected (Not Detecte); Bordetella pertussis Not Detected (Not Detect); Chlamydophila pneumoniae Not Detected (Not Detect); Coronavirus 229E Not Detected (Not Detect); Coronavirus HKU1 Not Detected (Not Detect); Coronavirus NL 63 Not Detected (Not Detect); Coronavirus OC43 Not Detected (Not Detect); Human Metapneumovirus Not Detected (Not Detect); Human Rhinovirus/Enterovirus Not Detected (Not Detect); Influenza A Not Detected (Not Detect); Influenza B Not Detected (Not Detect); Mycoplasma pneumoniae Not Detected (Not Detect); Parainfluenza Virus 1 Not Detected (Not Detect); Parainfluenza Virus 2 Not Detected (Not Detect); Parainfluenza Virus 3 Not Detected (Not Detect); Parainfluenza Virus 4 Not Detected (Not Detect); Respiratory Syncytial Virus Not Detected (Not Detect); SARS- CoV-2 Detected (Not Detecte)
[2024-03-02 21:35] LABS: Ictotest Urine Positive (Negative); Nitrite Urine UA POSITIVE (Negative); Urine Volume 10mL (spun)
[2024-03-02 21:36] LABS: Bacteria Urine Occasional (0-1); Culture Indicated Urine Specimen Cultured; RBC Urine 0-1/HPF (0-5/HPF); Squamous Epithelial Cell Urine 0-1 /HPF (0-5/HPF); WBC Urine 0-1/HPF (0-5/HPF)
[2024-03-02] MEDS: cefTRIAXone 2,000 MG in SODIUM CHLORIDE 0.9% 100 ML 200 MG IV (21:40)
[2024-03-02] MEDS: FUROSEMIDE 40 MG/4 ML VIAL IV (22:07)
[2024-03-03] VITALS (54 sets, daily range): BP systolic 82–129; BP diastolic 37–60; PULSE 70–83; RESP 9–22; TEMP 36.5–37.2; O2SAT 93–100; BMI 34.5
--- NOTE | 2024-03-03 00:36 | PC.NURSE ---
Pt being followed by wound care for RIGHT medial calf wound. This RN and provider Miguel look at wound. It measures 5cm long x 2cm wide x 1cm deep. It is packed with blue foam, as before, and redressed with an allevyn. Compression stocking placed back on patient as was prior to looking at wound.
--- NOTE | 2024-03-03 00:59 | PC.NURSE ---
Fisher cath placed by CONSTANTINO Contreras with this RN's assistance at provider Miguel's verbal direction.
[2024-03-03] MEDS: SODIUM CHLORIDE 0.9% 1,000 ML 100 ML IV (02:34)
--- NOTE | 2024-03-03 02:55 | P.HP_ITS ---
History of Present Illness History of Present Illness Date Patient Seen: 03/03/24 Time Patient Seen: 02:55 Chief complaint: Lethargic/fever Narrative: 68 y/o with PMH of alcoholic liver cirrhosis and hepatitis B, presented confused, febrile and diagnosed with Covid 19 and acute on chronic hyponatremia of 119. Workup showing anasarca, cholelithiasis, leukocytosis, hypotension since the arrival to unit. Initially encephalopathic, with normal ammonia level. Denies abdominal pain, chest pain or shortness of breath. CXR shows cardiomegaly, Rt pleural effusion and perihilar infiltrates. Not hypoxemic or tachypneic at rest. Given Lasix and Rocephin in the ED. Admitted with likely hyponatremia, likely CHF, probable PNA, Covid 19 PFSH Medical History (Updated 03/03/24 @ 03:10 by Tito Fong MD) Gallstones Normal colonoscopy Normocytic anemia Alcoholic cirrhosis Hepatitis B Family History Other Colon cancer Stomach cancer Social History household members: spouse and children Smoking Status: Never smoker alcohol intake: never Meds Home Medications and Allergies Home Medications Medication Instructions Recorded Confirmed Type vitamin E 1 tab PO DAILY 09/24/23 03/03/24 History cholecalciferol (vitamin D3) 25 03/03/24 History mcg (1,000 unit) tablet (Vitamin D3) furosemide 40 mg tablet 40 mg PO DAILY 03/03/24 03/03/24 History oxycodone 5 mg tablet 5 mg PO Q4H PRN pain 03/03/24 03/03/24 History spironolactone 50 mg tablet 50 mg 3XW 03/03/24 03/03/24 History Allergies Allergy/AdvReac Type Severity Reaction Status Date / Time sulfamethoxazole Allergy Mild Hives Verified 03/02/24 20:26 [From Bactrim] trimethoprim [From Bactrim] Allergy Mild Hives Verified 03/02/24 20:26 Review of Systems Review of Systems Narrative: Poor historian due to confusion and encephalopathy Cardiovascular Comments: w/o chest pain Respiratory Comments: w/o shortness of breath Gastrointestinal Comments: w/o abdominal pain Genitourinary Comments: w/o dysuria Exam Vital Signs (past 8 hours): - 03/02/24 20:22 03/02/24 20:22 03/02/24 20:26 Temperature 102.3 F H Pulse Rate 94 H 94 H Respiratory Rate 17 Blood Pressure 109/49 L 109/49 L Pulse Oximetry 95 94 Oxygen Delivery Method Room Air Oxygen Flow Rate 03/02/24 20:30 03/02/24 21:00 03/02/24 21:06 Temperature Pulse Rate 92 H 86 Respiratory Rate 19 15 Blood Pressure 119/56 L Pulse Oximetry 95 98 Oxygen Delivery Method Oxygen Flow Rate 03/02/24 21:06 03/02/24 21:10 03/02/24 21:30 Temperature 102.3 F H Pulse Rate 90 90 Respiratory Rate 16 Blood Pressure Pulse Oximetry 98 96 Oxygen Delivery Method Oxygen Flow Rate 03/02/24 21:43 03/02/24 21:43 03/02/24 21:45 Temperature Pulse Rate 86 Respiratory Rate 15 Blood Pressure 107/51 L 98/47 L Pulse Oximetry 94 Oxygen Delivery Method Oxygen Flow Rate 03/02/24 21:45 03/02/24 22:00 03/02/24 22:00 Temperature Pulse Rate 86 86 Respiratory Rate 16 14 Blood Pressure 98/46 L Pulse Oximetry 97 96 Oxygen Delivery Method Oxygen Flow Rate 03/02/24 22:15 03/02/24 22:15 03/02/24 22:18 Temperature 99.3 F Pulse Rate 85 Respiratory Rate 14 Blood Pressure 98/47 L Pulse Oximetry 98 Oxygen Delivery Method Oxygen Flow Rate 03/02/24 22:30 03/02/24 22:30 03/02/24 22:45 Temperature Pulse Rate 83 84 Respiratory Rate 14 14 Blood Pressure 95/45 L Pulse Oximetry 97 96 Oxygen Delivery Method Oxygen Flow Rate 03/02/24 22:45 03/02/24 23:00 03/02/24 23:00 Temperature Pulse Rate 82 Respiratory Rate 14 Blood Pressure 94/44 L 93/44 L Pulse Oximetry 97 Oxygen Delivery Method Oxygen Flow Rate 03/02/24 23:15 03/02/24 23:15 03/02/24 23:30 Temperature Pulse Rate 82 82 Respiratory Rate 12 13 Blood Pressure 98/46 L Pulse Oximetry 96 97 Oxygen Delivery Method Room Air Oxygen Flow Rate 03/02/24 23:30 03/02/24 23:45 03/02/24 23:45 Temperature Pulse Rate 81 Respiratory Rate 13 Blood Pressure 96/46 L 95/44 L Pulse Oximetry 97 Oxygen Delivery Method Oxygen Flow Rate 03/03/24 00:00 03/03/24 00:00 03/03/24 00:15 Temperature Pulse Rate 81 Respiratory Rate 12 Blood Pressure 96/46 L 100/46 L Pulse Oximetry 96 Oxygen Delivery Method Room Air Oxygen Flow Rate 03/03/24 00:15 03/03/24 00:30 03/03/24 00:30 Temperature 98.3 F Pulse Rate 80 80 Respiratory Rate 13 14 Blood Pressure 99/47 L Pulse Oximetry 97 95 Oxygen Delivery Method Room Air Room Air Oxygen Flow Rate 03/03/24 00:45 03/03/24 00:45 03/03/24 01:00 Temperature Pulse Rate 80 Respiratory Rate Blood Pressure 93/44 L 95/46 L Pulse Oximetry 96 Oxygen Delivery Method Room Air Oxygen Flow Rate 03/03/24 01:00 03/03/24 01:15 03/03/24 01:32 Temperature 98.5 F Pulse Rate 79 77 77 Respiratory Rate 12 17 11 L Blood Pressure 101/47 L Pulse Oximetry 94 97 95 Oxygen Delivery Method Room Air Oxygen Flow Rate 0 03/03/24 02:00 Temperature Pulse Rate 78 Respiratory Rate 11 L Blood Pressure 94/44 L Pulse Oximetry 95 Oxygen Delivery Method Oxygen Flow Rate 0 Oxygen Delivery Method Room Air Oxygen Flow Rate 0 Const Other: in no distress HENMT Other: normocephalic Neck Other: supple Resp Other: normal respiratory effort Cardio Other: RRR Skin Other: jaundice Rt leg wound Neuro Other: w/o acute focal weakness or sensory deficits Objective Labs 03/02/24 20:30 03/02/24 20:30 Labs: Laboratory Results - last 24 hr 03/02/24 03/02/24 03/02/24 20:24 20:30 20:35 WBC 17.2 H RBC 1.96 L Hgb 8.4 L Hct 23.4 L MCV 119.3 H MCH 43.0 H MCHC 36.0 RDW 15.5 H Plt Count 96 L Neut % (Auto) Not Reportable Lymph % (Auto) Not Reportable Bryan % (Auto) Not Reportable Eos % (Auto) Not Reportable Baso % (Auto) Not Reportable Lymph # (Auto) Not Reportable Bryan # (Auto) Not Reportable Baso # (Auto) Not Reportable Total Counted 100 Seg Neutrophils % 86.0 H Band Neutrophils % 7.0 Lymphocytes % (Manual) 4.0 L Eosinophils % (Manual) 1.0 L Metamyelocytes % 2.0 H Neutrophils # (Manual) 16628 H RBC Morphology See below Macrocytosis 2+ H PT 24.3 H INR 2.1 H APTT 39 H Sodium 119 L* Potassium 5.1 Chloride 91 L Carbon Dioxide 25 BUN 27 H Creatinine 0.58 Estimated GFR > 60 BUN/Creatinine Ratio 46.6 H Glucose 95 Lactate 1.6 Calcium 8.9 Total Bilirubin 17.4 H AST 72 H ALT 39 H Alkaline Phosphatase 110 Ammonia 15 Total Creatine Kinase 33 Troponin I 0.013 NT-Pro-B Natriuret Pep 559 H Total Protein 6.8 Albumin 3.1 L Globulin 3.7 Albumin/Globulin Ratio 0.8 L Procalcitonin 0.357 Urine Color Urine Appearance Urine pH Ur Specific [place] Urine Protein Urine Glucose (UA) Urine Ketones Urine Occult Blood Urine Nitrate Urine Bilirubin Ur Bilirubin Confirm Urine Urobilinogen Ur Leukocyte Esterase Urine RBC Urine WBC Ur Squamous Epith Cells Urine Bacteria Ur Culture Indicated? Vol Urine Centrifuged Ethyl Alcohol < 10 Chlamy pneumoniae PCR Not detected Adenovirus (PCR) Not detected B.parapertussis DNA PCR Not detected Coronavirus OC43 (PCR) Not detected Coronavirus HKU1 (PCR) Not detected Coronavirus 229E (PCR) Not detected SARS-CoV-2 (PCR) Detected H Coronavirus NL63 (PCR) Not detected Human Metapneumovir PCR Not detected Influenza Type A (PCR) Not detected Influenza Type B (PCR) Not detected M. pneumoniae (PCR) Not detected Parainfluenza 1 (PCR) Not detected Parainfluenza 2 (PCR) Not detected Parainfluenza 3 (PCR) Not detected Parainfluenza 4 (PCR) Not detected RSV (PCR) Not detected Entero/Rhino (PCR) Not detected 03/02/24 21:04 WBC RBC Hgb Hct MCV MCH MCHC RDW Plt Count Neut % (Auto) Lymph % (Auto) Bryan % (Auto) Eos % (Auto) Baso % (Auto) Lymph # (Auto) Bryan # (Auto) Baso # (Auto) Total Counted Seg Neutrophils % Band Neutrophils % Lymphocytes % (Manual) Eosinophils % (Manual) Metamyelocytes % Neutrophils # (Manual) RBC Morphology Macrocytosis PT INR APTT Sodium Potassium Chloride Carbon Dioxide BUN Creatinine Estimated GFR BUN/Creatinine Ratio Glucose Lactate Calcium Total Bilirubin AST ALT Alkaline Phosphatase Ammonia Total Creatine Kinase Troponin I NT-Pro-B Natriuret Pep Total Protein Albumin Globulin Albumin/Globulin Ratio Procalcitonin Urine Color Yellow Urine Appearance Clear Urine pH 5.0 Ur Specific [place] 1.010 Urine Protein Negative Urine Glucose (UA) Negative Urine Ketones Negative Urine Occult Blood Trace-intact Urine Nitrate Positive H Urine Bilirubin 2+ H Ur Bilirubin Confirm Positive H Urine Urobilinogen 2.0 H Ur Leukocyte Esterase Negative Urine RBC 0-1/hpf Urine WBC 0-1/hpf Ur Squamous Epith Cells 0-1 /hpf Urine Bacteria Occasional (0-1) Ur Culture Indicated? Specimen cultured Vol Urine Centrifuged 10ml (spun) Ethyl Alcohol Chlamy pneumoniae PCR Adenovirus (PCR) B.parapertussis DNA PCR Coronavirus OC43 (PCR) Coronavirus HKU1 (PCR) Coronavirus 229E (PCR) SARS-CoV-2 (PCR) Coronavirus NL63 (PCR) Human Metapneumovir PCR Influenza Type A (PCR) Influenza Type B (PCR) M. pneumoniae (PCR) Parainfluenza 1 (PCR) Parainfluenza 2 (PCR) Parainfluenza 3 (PCR) Parainfluenza 4 (PCR) RSV (PCR) Entero/Rhino (PCR) Assessment & Plan Assessment and plan (1) Acute hyponatremia: Status: Acute (2) COVID-19: Status: Acute (3) Alcoholic cirrhosis: Status: Acute (4) Gallstones: Status: Acute (5) Normocytic anemia: Status: Acute Assessment & Plan narrative: Hyponatremia - acute on chronic - below baseline by ~ 10, 119 - NS at 100, serial BMP - had 40 mg of Lasix in the ED for hypervolemic component - likely worsened by Covid 19 Alcoholic Liver Cirrhosis / End stage liver disease - LFTs are high chronically - not on transplant list due to alcoholism - portal HTN with esophageal varices - poor prognosis Anasarca - Lasix 40 mg daily at home, increased to 40 bid, Aldactone Suspected CHF, possible PNA - cardiomegaly, elevated BNP - lasix, Rocephin UTI - Rocephin Anemia, Thrombocytopenia - w/o evidence of acute bleed - at risk with varices DVT prophylaxis - SCDs Time-Based Coding :: [TOTAL MINUTES] spent with patient and on the chart (including review of chart, obtaining history, exam, reviewing outside data, placing orders, documenting exam and treatment plan, and counseling patient) on [DATE].
[2024-03-03 04:56] LABS: Add Manual Diff / Slide Review NO; Basophils Absolute Auto 200 /uL (0-100); Basophils Percent Auto 0.7 % (0-2); Eosinophils Absolute Auto 0 /uL (0-450); Eosinophils Percent Auto 0.1 % (2-4); Hemoglobin 7.3 g/dL (12.0-16.0); Lymphocytes Absolute Auto 1200 /uL (1100-4500); Lymphocytes Percent Auto 5.4 % (25-40); Mean Corpuscular HGB Conc 35.1 % (30-36); Mean Corpuscular Hemoglobin 42.5 PG (26-34); Mean Corpuscular Volume 120.8 fL (80-100); Monocytes Absolute Auto 700 /uL (0-900); Monocytes Percent Auto 3.3 % (3-14); Neutrophils Absolute Auto 19600 /uL (1500-7000); Neutrophils Percent Auto 90.5 % (50-75); Platelet Count 81 X10^3/uL (150-400); Red Blood Cell Count 1.72 X10^6/uL (4.0-5.2); Red Cell Distribution Width 15.9 % (11.6-14.8); White Blood Cell Count 21.6 X10^3/uL (4.5-11.0)
[2024-03-03 04:59] LABS: Hematocrit 20.7 % (36-46)
[2024-03-03 05:15] LABS: Alanine Aminotransferase 33 IU/L (<35); Albumin 2.6 g/dL (3.5-5.0); Albumin Globulin Ratio 0.8 (1.0-2.8); Alkaline Phosphatase 68 U/L (38-126); Aspartate Aminotransferase 60 IU/L (14-36); BUN Creatinine Ratio 46.2 (6-22); Bilirubin Total 15.9 mg/dL (0.2-1.3); Blood Urea Nitrogen 30 mg/dL (7-17); Calcium 8.6 mg/dL (8.4-10.2); Carbon Dioxide 22 mmol/L (22-32); Chloride 95 mmol/L (98-107); Estimated Glomerular Filt Rate > 60 mL/min (>60); Globulin 3.1 g/dL (1.7-4.1); Glucose 119 mg/dL (80-110); HEMOLYSIS < 15 (0-50); Potassium 4.6 mmol/L (3.4-5.1); Sodium 124 mmol/L (137-145); Total Protein 5.7 g/dL (6.3-8.2)
[2024-03-03 05:45] LABS: Anisocytosis 1+; Macrocytosis 2+; Platelet Estimate Decreased on smear
[2024-03-03 06:47] LABS: MRSA (Nasal) PCR NOT DETECTED (Not Detect)
[2024-03-03] MEDS: POTASSIUM CHLORIDE 20 MEQ TAB 40 MEQ PO (08:28)
[2024-03-03] MEDS: SPIRONOLACTONE 25 MG TABLET 50 MG PO (08:28)
[2024-03-03] MEDS: MAGNESIUM SULFATE 2 GM/50 ML PIGGYBACK IV (08:28)
[2024-03-03] MEDS: FOLIC ACID 1 MG TABLET PO (08:28)
[2024-03-03] MEDS: ALBUMIN HUMAN 50 GM/200 ML VIAL IV (08:28)
[2024-03-03] MEDS: LACTULOSE 20 GM/30 ML SOLUTION PO (08:29)
[2024-03-03] MEDS: TORSEMIDE 10 MG TABLET 40 MG PO (08:36)
[2024-03-03] MEDS: THIAMINE 500 MG in SODIUM CHLORIDE 0.9% 100 ML 420 MG IV ×3 (09:34→20:34)
[2024-03-03 10:02] LABS: Acinetobacter calcoa-baumannii Not Detected (Not Detect); Bacteroides fragilis Not Detected (Not Detect); Candida albicans Not Detected (Not Detect); Candida auris Not Detected (Not Detect); Candida glabrata Not Detected (Not Detect); Candida krusei Not Detected (Not Detect); Candida parapsilosis Not Detected (Not Detect); Candida tropicalis Not Detected (Not Detect); Cryptococcus neoformans/gatti Not Detected (Not Detect); Enterobacter cloacae complex Not Detected (Not Detect); Enterobacterales Not Detected (Not Detect); Enterococcus faecalis Not Detected (Not Detect); Enterococcus faecium Not Detected (Not Detect); Haemophilus influenzae Not Detected (Not Detect); Klebsiella aerogenes Not Detected (Not Detect); Listeria monocytogenes Not Detected (Not Detect); Neisseria meningitidis Not Detected (Not Detect); Proteus species Not Detected (Not Detect); Pseudomonas aeruginosa Not Detected (Not Detect); Salmonella species Not Detected (Not Detect); Serratia marcescens Not Detected (Not Detect); Staphylococcus epidermidis Not Detected (Not Detect); Staphylococcus lugdunensis Not Detected (Not Detect); Staphylococcus species Not Detected (Not Detect); Stenotrophomonas maltophilia Not Detected (Not Detect); Streptococcus agalactiae (Gr B Not Detected (Not Detect); Streptococcus pneumonia Not Detected (Not Detect); Streptococcus pyogenes (Gr A) Not Detected (Not Detect); Streptococcus species Not Detected (Not Detect)
[2024-03-03] MEDS: MIDODRINE HCL 5 MG TABLET 10 MG PO (10:47)
[2024-03-03] MEDS: PHYTONADIONE (VIT K1) 5 MG TABLET PO (10:49)
--- NOTE | 2024-03-03 10:55 | DI.ECHO.S_ITS ---
[facility] : : [address] : [place] [address] : : [id number] : : Phone: [phone] Echocardiogram Report + + :Name: ERINN FREEMAN Study Date: 03/03/2024 Height: 59 in : :[facility] ReadingLocation: Weight: 164 lb : : Gender: Female BSA: 1.7 m2 : :: 1955 Age: 68 yrs BP: 114/54 mmHg: :Reason For Study: EDEMA : :Ordering Physician: HENRY, : :RADHAMES BERUMEN Performed By: Jennifer Archer : :Referring: RADHAMES FIGUEROA MD : + + Interpretation Summary Normal sinus rhythm. Normal LV size and wall thickness. Normal wall motion and LV systolic function. Ejection fraction is 60-65%. Moderate left atrial enlargement; otherwise no valvular abnormalities. Mild mitral annular calcification with moderate associated mitral regurgitation. Aortic valve leaflets are mildly thickened and calcified with moderate associated aortic stenosis. Peak velocity is 3 m/s mean gradient is 20 mmHg. 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 Estimated PA systolic pressure 61 mmHg assuming right atrial pressure 15 mmHg. RV size is normal and RV is functioning normally. No prior study available for comparison. Procedure: A two-dimensional transthoracic echocardiogram with color flow and Doppler was performed. The study quality was technically adequate. There is no prior echocardiogram noted for this patient. The patient was in sinus rhythm with heart rates between 72-74 bpm during the exam. Left Ventricle: The left ventricle is normal in size and wall thickness. The ejection fraction is estimated to be 60-65%. Right Ventricle: The right ventricle is normal in size and function. Atria: The left atrium is moderately dilated. The right atrium is mildly dilated. There is no Doppler evidence for an interatrial shunt. Mitral Valve: There is mild mitral annular calcification. The mitral valve leaflets appear mildly thickened, but open well. The mitral valve mean gradient is 6.6 mmHg. There is mild to moderate mitral regurgitation. Aortic Valve: The aortic valve is trileaflet. The aortic valve is slightly calcified. The aortic valve mean gradient is 21 mmHg. The calculated aortic valve area is 0.9 cm2. No aortic regurgitation is present. Tricuspid Valve: The tricuspid valve leaflets are thin and pliable. There is moderate tricuspid regurgitation. The right ventricular systolic pressure is estimated to be at least 61 mmHg based on an estimated right atrial pressure of 15 mm Hg. Pulmonic Valve: The pulmonic valve leaflets are thin and pliable; valve motion is normal. There is mild pulmonic regurgitation. Great Vessels: The aortic root is normal size. The dimensions of the ascending aorta are normal. The IVC is dilated (diameter is greater than 2.1 cm) and it collapses less than 50% with a sniff. This suggests a high right atrial pressure of 15 mm Hg. Pericardium/ Pleura There is no pericardial effusion. There is no pleural effusion. MMode/2D Measurements & Calculations LVIDd: 5.2 cm LVOT diam: 1.8 cm LVIDs: 3.3 cm Ao root diam: 2.6 cm FS: 35.4 % asc Aorta Diam: 3.1 cm IVSd: 0.84 cm Ao Arch Diam (Prox Trans): 3.5 cm LVPWd: 0.70 cm LV kelly. diameter/BSA (cm/m^2): 3.1 LV sys. diameter/BSA (cm/m^2): 2.0 LA A2 area: 24.4 cm2 RA long axis: 5.4 cm LA A4 area: 23.2 cm2 RA area: 19.5 cm2 LA length (vol): 6.0 cm RA vol: 59.2 ml LA vol: 80.9 ml RA : 34.9 ml/m2 LA vol index: 47.7 ml/m2 IVC diam: 2.4 cm RVD1 (basal): 3.7 cm TAPSE: 2.0 cm Doppler Measurements & Calculations Ao V2 max: 344.4 cm/sec LVOT Max Mariano: 122.4 cm/sec Ao V2 mean: 204.0 cm/sec LV V1 max P.0 mmHg Ao max P.0 mmHg LV V1 VTI: 22.7 cm Ao mean P.4 mmHg MADDISON(I,D): 0.92 cm2 Ao V2 VTI: 62.2 cm MADDISON(V,D): 0.90 cm2 sev ratio: 0.36 MADDISON indexed to BSA (cm^2/m^2): 0.54 MV E max mariano: 204.9 cm/sec TR max mariano: 338.2 cm/sec MV A max mariano: 83.5 cm/sec TR max P.7 mmHg MV E/A: 2.5 PA V2 max: 175.2 cm/sec Med Peak E' Mariano: 10.4 cm/sec PA V2 mean: 123.4 cm/sec E/E' med: 19.8 PA mean P.7 mmHg Lat Peak E' Mariano: 13.0 cm/sec PA pr(Accel): 41.3 mmHg E/E' lat: 15.7 E/e' average: 17.8 MV dec time: 0.33 sec MVA(VTI): 0.98 cm2 MV V2 mean: 101.8 cm/sec SV(LVOT): 57.2 ml MV mean P.6 mmHg MV V2 VTI: 58.4 cm Electronically signed by: Louise Leach M.D. on Reading Physician:03/03/2024 04:30 PM
[2024-03-03] MEDS: VANCOMYCIN 2,000 MG/400 ML PIGGYBACK 200 MG IV (11:00)
[2024-03-03] MEDS: NOREPINEPHRINE BITARTRATE/D5W 4 MG/250 ML PLAST..BAG 27.938 MG IV ×2 (11:30→19:54)
[2024-03-03 12:41] LABS: Lactate (Lactic Acid) 1.9 mmol/L (0.7-2.1)
[2024-03-03 12:47] LABS: BUN Creatinine Ratio 48.4 (6-22); Blood Urea Nitrogen 31 mg/dL (7-17); Calcium 9.1 mg/dL (8.4-10.2); Carbon Dioxide 22 mmol/L (22-32); Chloride 93 mmol/L (98-107); Estimated Glomerular Filt Rate > 60 mL/min (>60); Glucose 120 mg/dL (80-110); HEMOLYSIS < 15 (0-50); Potassium 4.7 mmol/L (3.4-5.1); Sodium 124 mmol/L (137-145)
[2024-03-03 13:25] LABS: C-Reactive Protein Quant 2.5 mg/dL (<1.0)
--- NOTE | 2024-03-03 14:02 | DI.RAD.S_ITS ---
PROCEDURE: XR CHEST 1V INDICATIONS: PICC line placement TECHNIQUE: One view of the chest was acquired. COMPARISON: [facility], , XR CHEST 1V, 03/02/2024, 20:23. FINDINGS: Surgical changes and devices: Left upper extremity approach PICC tip projects over the high SVC. Lungs and pleura: Lungs are clear. No pleural effusions or pneumothorax. Mediastinum: Mediastinal contours appear normal. Heart size is normal. Bones and chest wall: No suspicious bony lesions. Overlying soft tissues appear unremarkable. IMPRESSION: Left upper extremity approach PICC tip projects over the high SVC. Dictated by: Mir Steiner M.D. on 03/03/2024 at 15:18 Approved by: Mir Steiner M.D. on 03/03/2024 at 15:18
--- NOTE | 2024-03-03 16:38 | CM.DANOTE ---
B DCP Assessment Note pt is a 68yo F here with COVID and hyponatremia. Currently enrolled in wound care OP here at . PCP Audrey Wu and self pay OIL TANKER CAPTAIN reviewed EMR. Per chart review, pt COVID pos. Lives with Spouse in [place]. Per hospitalist in morning rounds, likely another day or two before dc. OIL TANKER CAPTAIN did not meet with pt due to COVID precautions. P: No identified barriers to safe dc home with OP f/u. Likely family to transport home. CM team will continue to follow as needed PHAM Butler Discharge Planning/Care Management CM Discharge Assessment Start: 03/03/24 16:34 Freq: Status: Active Protocol: Document 03/03/24 16:34 (Rec: 03/03/24 16:38 [id number]) Discharge Planning Assessment Assigned Sports Official PHAM Bravo DPOA/Assigned Designee Name rody Francis Contact Information [phone] Advance Directives? No History Provided By Patient Prior Living Arrangements House Household Members spouse,children Independent with ADL's Yes Is patient alert and oriented? Yes Community Services used prior to Wound Care admission: Discharge Plan Home Whiteboard Updated in Patient Room with No name and ext. # of Sports Official Review Status In Process Please Provide Date Initial DC 03/03/24 Assessment Was Performed Next Review Type Continued Stay Review
--- NOTE | 2024-03-03 17:34 | PM.HP.1 ---
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 Workup showing anasarca, cholelithiasis, leukocytosis, hypotension since the arrival to unit. Initially encephalopathic, with normal ammonia level. Denies abdominal pain, chest pain or shortness of breath. CXR shows cardiomegaly, Rt pleural effusion and perihilar infiltrates. Not hypoxemic or tachypneic at rest. Given Lasix and Rocephin in the ED. Admitted with likely hyponatremia, likely CHF, probable PNA, Covid 19 Patient was more alert later in AM of admission however blood pressure dropped requiring start of vasopressor. Blood cultures grew gram positive bacilli with unclear source. [facility] Medical History (Updated 03/03/24 @ 03:10 by Tito Fong MD) Gallstones Normal colonoscopy Normocytic anemia Alcoholic cirrhosis Hepatitis B Family History Other Colon cancer Stomach cancer Social History household members: spouse and children Smoking Status: Never smoker alcohol intake: never Meds Home Medications and Allergies Home Medications Medication Instructions Recorded Confirmed Type vitamin E 1 tab PO DAILY 09/24/23 03/03/24 History cholecalciferol (vitamin D3) 25 1,000 unit PO DAILY 03/03/24 03/03/24 History mcg (1,000 unit) tablet (Vitamin D3) furosemide 40 mg tablet 40 mg PO DAILY 03/03/24 03/03/24 History oxycodone 5 mg tablet 5 mg PO Q4H PRN pain 03/03/24 03/03/24 History spironolactone 50 mg tablet 50 mg 3XW 03/03/24 03/03/24 History Allergies Allergy/AdvReac Type Severity Reaction Status Date / Time sulfamethoxazole Allergy Mild Hives Verified 03/02/24 20:26 [From Bactrim] trimethoprim [From Bactrim] Allergy Mild Hives Verified 03/02/24 20:26 Exam Vital Signs (past 8 hours): - 03/03/24 10:00 03/03/24 10:00 03/03/24 10:40 Pulse Rate 77 80 Respiratory Rate 16 17 Blood Pressure 90/42 L Pulse Oximetry 98 100 03/03/24 10:40 03/03/24 11:00 03/03/24 11:00 Pulse Rate 73 Respiratory Rate 13 Blood Pressure 95/44 L 82/37 L Pulse Oximetry 100 03/03/24 11:26 03/03/24 11:26 03/03/24 11:30 Pulse Rate 73 73 Respiratory Rate 13 15 Blood Pressure 85/39 L Pulse Oximetry 99 99 03/03/24 11:30 03/03/24 11:57 03/03/24 11:57 Pulse Rate 74 Respiratory Rate 17 Blood Pressure 91/43 L 121/56 L Pulse Oximetry 99 03/03/24 12:00 03/03/24 12:00 03/03/24 12:21 Pulse Rate 74 74 Respiratory Rate 15 13 Blood Pressure 122/55 L Pulse Oximetry 100 98 03/03/24 12:21 03/03/24 12:30 03/03/24 12:30 Pulse Rate 74 Respiratory Rate 13 Blood Pressure 119/55 L 118/58 L Pulse Oximetry 98 03/03/24 13:00 03/03/24 13:00 03/03/24 13:31 Pulse Rate 77 76 Respiratory Rate 15 16 Blood Pressure 124/57 L Pulse Oximetry 99 99 03/03/24 13:31 03/03/24 14:00 03/03/24 14:00 Pulse Rate 75 Respiratory Rate 15 Blood Pressure 122/60 118/53 L Pulse Oximetry 98 03/03/24 14:30 03/03/24 14:30 03/03/24 14:35 Pulse Rate 73 73 Respiratory Rate 14 15 Blood Pressure 103/48 L Pulse Oximetry 100 99 03/03/24 14:35 03/03/24 15:00 03/03/24 15:04 Pulse Rate 76 74 Respiratory Rate 19 19 Blood Pressure 101/49 L Pulse Oximetry 97 98 03/03/24 15:04 03/03/24 16:00 Pulse Rate 70 Respiratory Rate 15 Blood Pressure 114/54 L Pulse Oximetry 97 Oxygen Delivery Method Room Air Oxygen Flow Rate 0 Narrative Exam Narrative: general: not in distress, jaundice lung: normal effort cardio: RRR abd: soft and non-tender to deep palpation, no appreciated ascites skin: wound on right lower leg with bandage neuro: alert and oriented with focal deficits, no asterixis psych: pleasant Objective Labs 03/03/24 04:35 03/03/24 12:12 Labs: Laboratory Results - last 24 hr 03/02/24 03/02/24 03/02/24 20:24 20:30 20:35 WBC 17.2 H RBC 1.96 L Hgb 8.4 L Hct 23.4 L MCV 119.3 H MCH 43.0 H MCHC 36.0 RDW 15.5 H Plt Count 96 L Neut % (Auto) Not Reportable Lymph % (Auto) Not Reportable Milam % (Auto) Not Reportable Eos % (Auto) Not Reportable Baso % (Auto) Not Reportable Neut # (Auto) Lymph # (Auto) Not Reportable [place] # (Auto) Not Reportable Eos # (Auto) Baso # (Auto) Not Reportable Total Counted 100 Seg Neutrophils % 86.0 H Band Neutrophils % 7.0 Lymphocytes % (Manual) 4.0 L Eosinophils % (Manual) 1.0 L Metamyelocytes % 2.0 H Neutrophils # (Manual) 22216 H Platelet Estimate RBC Morphology See below Anisocytosis Macrocytosis 2+ H PT 24.3 H INR 2.1 H APTT 39 H Sodium 119 L* Potassium 5.1 Chloride 91 L Carbon Dioxide 25 BUN 27 H Creatinine 0.58 Estimated GFR > 60 BUN/Creatinine Ratio 46.6 H Glucose 95 Lactate 1.6 Calcium 8.9 Total Bilirubin 17.4 H AST 72 H ALT 39 H Alkaline Phosphatase 110 Ammonia 15 Total Creatine Kinase 33 Troponin I 0.013 C-Reactive Protein NT-Pro-B Natriuret Pep 559 H Total Protein 6.8 Albumin 3.1 L Globulin 3.7 Albumin/Globulin Ratio 0.8 L Procalcitonin 0.357 Urine Color Urine Appearance Urine pH Ur Specific [place] Urine Protein Urine Glucose (UA) Urine Ketones Urine Occult Blood Urine Nitrate Urine Bilirubin Ur Bilirubin Confirm Urine Urobilinogen Ur Leukocyte Esterase Urine RBC Urine WBC Ur Squamous Epith Cells Urine Bacteria Ur Culture Indicated? Vol Urine Centrifuged Nasal Screen MRSA (PCR) Ethyl Alcohol < 10 A.calcoaceticus-baumannii cmplx PCR Chlamy pneumoniae PCR Not detected Adenovirus (PCR) Not detected Bacteroides fragilis B.parapertussis DNA PCR Not detected Jennifer albicans (PCR) Jennifer auris (PCR) C. glabrata (PCR) C. krusei (PCR) C. parapsilosis (PCR) C. tropicalis (PCR) Coronavirus OC43 (PCR) Not detected Coronavirus HKU1 (PCR) Not detected Coronavirus 229E (PCR) Not detected SARS-CoV-2 (PCR) Detected H Coronavirus NL63 (PCR) Not detected C. neoform/gattii (PCR) Enterobacterales (PCR) E. cloacae complex PCR Enterococc faecalis PCR Enterococc faecium PCR E. coli (PCR) H. influenzae (PCR) Human Metapneumovir PCR Not detected Influenza Type A (PCR) Not detected Influenza Type B (PCR) Not detected Klebsiella aerogenes (PCR) Klebsiella oxytoca PCR Klebsiella pneumoniae List. monocytogenes PCR M. pneumoniae (PCR) Not detected N. meningitidis (PCR) Parainfluenza 1 (PCR) Not detected Parainfluenza 2 (PCR) Not detected Parainfluenza 3 (PCR) Not detected Parainfluenza 4 (PCR) Not detected Proteus species (PCR) RSV (PCR) Not detected Entero/Rhino (PCR) Not detected Salmonella spp. (PCR) Serratia marcescens PCR Staphylococcus sp PCR Staph aureus (PCR) mecA/C & MREJ Resist Gene mecA/C-Methicil Resis Gene mcr-1 Colistin Res Gene PCR Staph epidermidis (PCR) Staph lugdunensis PCR S. maltophilia (PCR) Streptococcus sp PCR Group A Strep (PCR) Strep agalactiae (PCR) Strep pneumoniae (PCR) P. aeruginosa (PCR) Alberto/B-Vanco Res Genes blaIMP Car res Gene PCR KPC-Carbap Res Gene PCR blaNDM Car Res Gene PCR OXA-48 Carbapenem Resis Gene (PCR) blaVIM Car Res Gene PCR CTX-M Gene Resistance (PCR) 03/02/24 03/02/24 03/03/24 21:04 21:18 01:33 WBC RBC Hgb Hct MCV MCH MCHC RDW Plt Count Neut % (Auto) Lymph % (Auto) Mil[place] % (Auto) Eos % (Auto) Baso % (Auto) Neut # (Auto) Lymph # (Auto) [place] # (Auto) Eos # (Auto) Baso # (Auto) Total Counted Seg Neutrophils % Band Neutrophils % Lymphocytes % (Manual) Eosinophils % (Manual) Metamyelocytes % Neutrophils # (Manual) Platelet Estimate RBC Morphology Anisocytosis Macrocytosis PT INR APTT Sodium Potassium Chloride Carbon Dioxide BUN Creatinine Estimated GFR BUN/Creatinine Ratio Glucose Lactate Calcium Total Bilirubin AST ALT Alkaline Phosphatase Ammonia Total Creatine Kinase Troponin I C-Reactive Protein NT-Pro-B Natriuret Pep Total Protein Albumin Globulin Albumin/Globulin Ratio Procalcitonin Urine Color Yellow Urine Appearance Clear Urine pH 5.0 Ur Specific [place] 1.010 Urine Protein Negative Urine Glucose (UA) Negative Urine Ketones Negative Urine Occult Blood Trace-intact Urine Nitrate Positive H Urine Bilirubin 2+ H Ur Bilirubin Confirm Positive H Urine Urobilinogen 2.0 H Ur Leukocyte Esterase Negative Urine RBC 0-1/hpf Urine WBC 0-1/hpf Ur Squamous Epith Cells 0-1 /hpf Urine Bacteria Occasional (0-1) Ur Culture Indicated? Specimen cultured Vol Urine Centrifuged 10ml (spun) Nasal Screen MRSA (PCR) Not detected Ethyl Alcohol A.calcoaceticus-baumannii cmplx PCR Not detected Chlamy pneumoniae PCR Adenovirus (PCR) Bacteroides fragilis Not detected B.parapertussis DNA PCR Jennifer albicans (PCR) Not detected Jennifer auris (PCR) Not detected C. glabrata (PCR) Not detected C. krusei (PCR) Not detected C. parapsilosis (PCR) Not detected C. tropicalis (PCR) Not detected Coronavirus OC43 (PCR) Coronavirus HKU1 (PCR) Coronavirus 229E (PCR) SARS-CoV-2 (PCR) Coronavirus NL63 (PCR) C. neoform/gattii (PCR) Not detected Enterobacterales (PCR) Not detected E. cloacae complex PCR Not detected Enterococc faecalis PCR Not detected Enterococc faecium PCR Not detected E. coli (PCR) Not detected H. influenzae (PCR) Not detected Human Metapneumovir PCR Influenza Type A (PCR) Influenza Type B (PCR) Klebsiella aerogenes (PCR) Not detected Klebsiella oxytoca PCR Not detected Klebsiella pneumoniae Not detected List. monocytogenes PCR Not detected M. pneumoniae (PCR) N. meningitidis (PCR) Not detected Parainfluenza 1 (PCR) Parainfluenza 2 (PCR) Parainfluenza 3 (PCR) Parainfluenza 4 (PCR) Proteus species (PCR) Not detected RSV (PCR) Entero/Rhino (PCR) Salmonella spp. (PCR) Not detected Serratia marcescens PCR Not detected Staphylococcus sp PCR Not detected Staph aureus (PCR) Not detected mecA/C & MREJ Resist Gene Not applicable mecA/C-Methicil Resis Gene Not applicable mcr-1 Colistin Res Gene PCR Not applicable Staph epidermidis (PCR) Not detected Staph lugdunensis PCR Not detected S. maltophilia (PCR) Not detected Streptococcus sp PCR Not detected Group A Strep (PCR) Not detected Strep agalactiae (PCR) Not detected Strep pneumoniae (PCR) Not detected P. aeruginosa (PCR) Not detected Alberto/B-Vanco Res Genes Not applicable blaIMP Car res Gene PCR Not applicable KPC-Carbap Res Gene PCR Not applicable blaNDM Car Res Gene PCR Not applicable OXA-48 Carbapenem Resis Gene (PCR) Not applicable blaVIM Car Res Gene PCR Not applicable CTX-M Gene Resistance (PCR) Not applicable 03/03/24 03/03/24 04:35 12:12 WBC 21.6 H RBC 1.72 L Hgb 7.3 L Hct 20.7 L* MCV 120.8 H MCH 42.5 H MCHC 35.1 RDW 15.9 H Plt Count 81 L Neut % (Auto) 90.5 H Lymph % (Auto) 5.4 L Mil[place] % (Auto) 3.3 Eos % (Auto) 0.1 L Baso % (Auto) 0.7 Neut # (Auto) 64289 H Lymph # (Auto) 1200 [place] # (Auto) 700 Eos # (Auto) 0 Baso # (Auto) 200 H Total Counted Seg Neutrophils % Band Neutrophils % Lymphocytes % (Manual) Eosinophils % (Manual) Metamyelocytes % Neutrophils # (Manual) Platelet Estimate Decreased on smear RBC Morphology See below Anisocytosis 1+ H Macrocytosis 2+ H PT INR APTT Sodium 124 L 124 L Potassium 4.6 4.7 Chloride 95 L 93 L Carbon Dioxide 22 22 BUN 30 H 31 H Creatinine 0.65 0.64 Estimated GFR > 60 > 60 BUN/Creatinine Ratio 46.2 H 48.4 H Glucose 119 H 120 H Lactate 1.9 Calcium 8.6 9.1 Total Bilirubin 15.9 H AST 60 H ALT 33 Alkaline Phosphatase 68 Ammonia Total Creatine Kinase Troponin I C-Reactive Protein 2.5 H NT-Pro-B Natriuret Pep Total Protein 5.7 L Albumin 2.6 L Globulin 3.1 Albumin/Globulin Ratio 0.8 L Procalcitonin Urine Color Urine Appearance Urine pH Ur Specific [place] Urine Protein Urine Glucose (UA) Urine Ketones Urine Occult Blood Urine Nitrate Urine Bilirubin Ur Bilirubin Confirm Urine Urobilinogen Ur Leukocyte Esterase Urine RBC Urine WBC Ur Squamous Epith Cells Urine Bacteria Ur Culture Indicated? Vol Urine Centrifuged Nasal Screen MRSA (PCR) Ethyl Alcohol A.calcoaceticus-baumannii cmplx PCR Chlamy pneumoniae PCR Adenovirus (PCR) Bacteroides fragilis B.parapertussis DNA PCR Jennifer albicans (PCR) Jennifer auris (PCR) C. glabrata (PCR) C. krusei (PCR) C. parapsilosis (PCR) C. tropicalis (PCR) Coronavirus OC43 (PCR) Coronavirus HKU1 (PCR) Coronavirus 229E (PCR) SARS-CoV-2 (PCR) Coronavirus NL63 (PCR) C. neoform/gattii (PCR) Enterobacterales (PCR) E. cloacae complex PCR Enterococc faecalis PCR Enterococc faecium PCR E. coli (PCR) H. influenzae (PCR) Human Metapneumovir PCR Influenza Type A (PCR) Influenza Type B (PCR) Klebsiella aerogenes (PCR) Klebsiella oxytoca PCR Klebsiella pneumoniae List. monocytogenes PCR M. pneumoniae (PCR) N. meningitidis (PCR) Parainfluenza 1 (PCR) Parainfluenza 2 (PCR) Parainfluenza 3 (PCR) Parainfluenza 4 (PCR) Proteus species (PCR) RSV (PCR) Entero/Rhino (PCR) Salmonella spp. (PCR) Serratia marcescens PCR Staphylococcus sp PCR Staph aureus (PCR) mecA/C & MREJ Resist Gene mecA/C-Methicil Resis Gene mcr-1 Colistin Res Gene PCR Staph epidermidis (PCR) Staph lugdunensis PCR S. maltophilia (PCR) Streptococcus sp PCR Group A Strep (PCR) Strep agalactiae (PCR) Strep pneumoniae (PCR) P. aeruginosa (PCR) Alberto/B-Vanco Res Genes blaIMP Car res Gene PCR KPC-Carbap Res Gene PCR blaNDM Car Res Gene PCR OXA-48 Carbapenem Resis Gene (PCR) blaVIM Car Res Gene PCR CTX-M Gene Resistance (PCR) Assessment & Plan Assessment & Plan narrative: #Septic Shock, Gram Positive Bacilli Bacteremia, Source Unclear #Acute on Chronic Hypervolemic Hyponatremia #Acute on Chronic Anemia w/o evidence of bleed #Alcoholic Liver Cirrhosis -Levophed to maintain MAP >65 -50g 25% albumin -Thiamine / folic acid -Maintain HgB >7, transfuse as indicated. 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 Hyponatremia - acute on chronic - below baseline by ~ 10, 119 - NS at 100, serial BMP - had 40 mg of Lasix in the ED for hypervolemic component - likely worsened by Covid 19 Alcoholic Liver Cirrhosis / End stage liver disease - LFTs are high chronically - not on transplant list due to alcoholism - portal HTN with esophageal varices - poor prognosis Anasarca - Lasix 40 mg daily at home, increased to 40 bid, Aldactone Suspected CHF, possible PNA - cardiomegaly, elevated BNP - lasix, Rocephin UTI - Rocephin Anemia, Thrombocytopenia - w/o evidence of acute bleed - at risk with varices DVT prophylaxis - SCDs Time-Based Coding :: [TOTAL MINUTES] spent with patient and on the chart (including review of chart, obtaining history, exam, reviewing outside data, placing orders, documenting exam and treatment plan, and counseling patient) on [DATE].
[2024-03-03] MEDS: SODIUM CHLORIDE 0.9% FLUSH 10 ML IV (20:34)
[2024-03-03 22:22] LABS: Add Manual Diff / Slide Review NO; Basophils Absolute Auto 0 /uL (0-100); Basophils Percent Auto 0.2 % (0-2); Eosinophils Absolute Auto 200 /uL (0-450); Eosinophils Percent Auto 0.9 % (2-4); Hemoglobin 7.1 g/dL (12.0-16.0); Lymphocytes Absolute Auto 1400 /uL (1100-4500); Lymphocytes Percent Auto 6.8 % (25-40); Mean Corpuscular HGB Conc 35.5 % (30-36); Mean Corpuscular Hemoglobin 42.9 PG (26-34); Mean Corpuscular Volume 120.9 fL (80-100); Monocytes Absolute Auto 1700 /uL (0-900); Monocytes Percent Auto 8.1 % (3-14); Neutrophils Absolute Auto 17400 /uL (1500-7000); Platelet Count 94 X10^3/uL (150-400); Red Blood Cell Count 1.66 X10^6/uL (4.0-5.2); Red Cell Distribution Width 15.9 % (11.6-14.8); White Blood Cell Count 20.7 X10^3/uL (4.5-11.0)
[2024-03-03 22:23] LABS: Hematocrit 20.1 % (36-46)
[2024-03-03] MEDS: cefTRIAXone 2,000 MG in SODIUM CHLORIDE 0.9% 100 ML 200 MG IV (22:42)
[2024-03-03 23:03] LABS: Anisocytosis 1+; Macrocytosis 2+; Platelet Estimate Decreased on smear
[2024-03-03] MEDS: VANCOMYCIN 1,000 MG/200 ML PIGGYBACK 200 MG IV (23:38)
[2024-03-04] VITALS (59 sets, daily range): BP systolic 91–121; BP diastolic 44–71; PULSE 73–89; RESP 13–27; TEMP 36.4–37.4; O2SAT 94–99
[2024-03-04] MEDS: OXYCODONE/ACETAMINOPHEN 5/325 TABLET 1 TAB PO (01:56)
[2024-03-04 06:09] LABS: Add Manual Diff / Slide Review NO; Basophils Absolute Auto 100 /uL (0-100); Basophils Percent Auto 0.5 % (0-2); Eosinophils Absolute Auto 300 /uL (0-450); Eosinophils Percent Auto 1.8 % (2-4); Lymphocytes Absolute Auto 1400 /uL (1100-4500); Lymphocytes Percent Auto 8.4 % (25-40); Mean Corpuscular HGB Conc 35.6 % (30-36); Mean Corpuscular Hemoglobin 42.9 PG (26-34); Mean Corpuscular Volume 120.5 fL (80-100); Monocytes Absolute Auto 1600 /uL (0-900); Neutrophils Absolute Auto 13800 /uL (1500-7000); Neutrophils Percent Auto 80.3 % (50-75); Platelet Count 84 X10^3/uL (150-400); Red Cell Distribution Width 16.1 % (11.6-14.8); White Blood Cell Count 17.2 X10^3/uL (4.5-11.0)
[2024-03-04 06:10] LABS: Hemoglobin 6.9 g/dL (12.0-16.0)
[2024-03-04 06:11] LABS: Hematocrit 19.3 % (36-46)
[2024-03-04 06:25] LABS: Alanine Aminotransferase 29 IU/L (<35); Albumin Globulin Ratio 0.9 (1.0-2.8); Alkaline Phosphatase 75 U/L (38-126); Aspartate Aminotransferase 49 IU/L (14-36); BUN Creatinine Ratio 43.2 (6-22); Bilirubin Total 16.4 mg/dL (0.2-1.3); Blood Urea Nitrogen 35 mg/dL (7-17); Calcium 8.6 mg/dL (8.4-10.2); Carbon Dioxide 21 mmol/L (22-32); Chloride 96 mmol/L (98-107); Estimated Glomerular Filt Rate > 60 mL/min (>60); Globulin 3.2 g/dL (1.7-4.1); Glucose 108 mg/dL (80-110); HEMOLYSIS < 15 (0-50); Potassium 4.8 mmol/L (3.4-5.1); Sodium 123 mmol/L (137-145); Total Protein 6.2 g/dL (6.3-8.2)
--- NOTE | 2024-03-04 06:27 | P.PN_ITS ---
Subjective Subjective Interval history: patient endorses she is feeling much better today Exam Vital Signs (past 8 hours): - 03/03/24 22:30 03/03/24 22:30 03/03/24 23:00 Temperature Pulse Rate 76 Respiratory Rate 16 Blood Pressure 111/53 L 110/51 L Pulse Oximetry 97 Oxygen Flow Rate 03/03/24 23:00 03/03/24 23:30 03/03/24 23:30 Temperature Pulse Rate 76 77 Respiratory Rate 16 17 Blood Pressure 96/44 L Pulse Oximetry 99 96 Oxygen Flow Rate 0 03/04/24 00:00 03/04/24 00:00 03/04/24 00:30 Temperature 99.3 F Pulse Rate 78 78 Respiratory Rate 20 17 Blood Pressure 106/51 L Pulse Oximetry 97 96 Oxygen Flow Rate 0 03/04/24 00:30 03/04/24 01:00 03/04/24 01:00 Temperature Pulse Rate 80 Respiratory Rate 16 Blood Pressure 106/71 115/54 L Pulse Oximetry 95 Oxygen Flow Rate 0 03/04/24 01:30 03/04/24 01:30 03/04/24 02:00 Temperature Pulse Rate 84 Respiratory Rate 17 Blood Pressure 121/56 L 110/53 L Pulse Oximetry 95 Oxygen Flow Rate 03/04/24 02:00 03/04/24 02:30 03/04/24 02:30 Temperature Pulse Rate 77 75 Respiratory Rate 16 17 Blood Pressure 108/51 L Pulse Oximetry 97 95 Oxygen Flow Rate 0 03/04/24 03:00 03/04/24 03:00 03/04/24 03:30 Temperature Pulse Rate 77 75 Respiratory Rate 16 23 Blood Pressure 113/53 L Pulse Oximetry 94 95 Oxygen Flow Rate 0 03/04/24 03:30 03/04/24 04:00 03/04/24 04:00 Temperature 98.2 F Pulse Rate 77 Respiratory Rate 21 Blood Pressure 118/54 L 117/56 L Pulse Oximetry 97 Oxygen Flow Rate 0 03/04/24 04:30 03/04/24 04:30 03/04/24 05:00 Temperature Pulse Rate 76 78 Respiratory Rate 23 23 Blood Pressure 118/56 L Pulse Oximetry 95 95 Oxygen Flow Rate 03/04/24 05:00 03/04/24 05:30 03/04/24 05:30 Temperature Pulse Rate 77 Respiratory Rate 24 Blood Pressure 116/54 L 110/53 L Pulse Oximetry 95 Oxygen Flow Rate 0 03/04/24 06:00 Temperature Pulse Rate 78 Respiratory Rate 17 Blood Pressure 95/44 L Pulse Oximetry 97 Oxygen Flow Rate 0 Oxygen Delivery Method Room Air Oxygen Flow Rate 0 Narrative Exam Narrative: gen: jaundiced, not in distress lung: normal effort cardio: RRR abd: soft, non-tender ext: pitting edema neuro: no focal deficits psych: pleasant Objective Labs 03/04/24 05:55 03/04/24 05:55 Labs: Laboratory Results - last 24 hr 03/02/24 03/03/24 03/03/24 21:18 01:33 12:12 WBC RBC Hgb Hct MCV MCH MCHC RDW Plt Count Neut % (Auto) Lymph % (Auto) [place] % (Auto) Eos % (Auto) Baso % (Auto) Neut # (Auto) Lymph # (Auto) [place] # (Auto) Eos # (Auto) Baso # (Auto) Platelet Estimate RBC Morphology Anisocytosis Macrocytosis Sodium 124 L Potassium 4.7 Chloride 93 L Carbon Dioxide 22 BUN 31 H Creatinine 0.64 Estimated GFR > 60 BUN/Creatinine Ratio 48.4 H Glucose 120 H Lactate 1.9 Calcium 9.1 C-Reactive Protein 2.5 H Nasal Screen MRSA (PCR) Not detected A.calcoaceticus-baumannii cmplx PCR Not detected Bacteroides fragilis Not detected Jennifer albicans (PCR) Not detected Jennifer auris (PCR) Not detected C. glabrata (PCR) Not detected C. krusei (PCR) Not detected C. parapsilosis (PCR) Not detected C. tropicalis (PCR) Not detected C. neoform/gattii (PCR) Not detected Enterobacterales (PCR) Not detected E. cloacae complex PCR Not detected Enterococc faecalis PCR Not detected Enterococc faecium PCR Not detected E. coli (PCR) Not detected H. influenzae (PCR) Not detected Klebsiella aerogenes (PCR) Not detected Klebsiella oxytoca PCR Not detected Klebsiella pneumoniae Not detected List. monocytogenes PCR Not detected N. meningitidis (PCR) Not detected Proteus species (PCR) Not detected Salmonella spp. (PCR) Not detected Serratia marcescens PCR Not detected Staphylococcus sp PCR Not detected Staph aureus (PCR) Not detected mecA/C & MREJ Resist Gene Not applicable mecA/C-Methicil Resis Gene Not applicable mcr-1 Colistin Res Gene PCR Not applicable Staph epidermidis (PCR) Not detected Staph lugdunensis PCR Not detected S. maltophilia (PCR) Not detected Streptococcus sp PCR Not detected Group A Strep (PCR) Not detected Strep agalactiae (PCR) Not detected Strep pneumoniae (PCR) Not detected P. aeruginosa (PCR) Not detected Alberto/B-Vanco Res Genes Not applicable blaIMP Car res Gene PCR Not applicable KPC-Carbap Res Gene PCR Not applicable blaNDM Car Res Gene PCR Not applicable OXA-48 Carbapenem Resis Gene (PCR) Not applicable blaVIM Car Res Gene PCR Not applicable CTX-M Gene Resistance (PCR) Not applicable 03/03/24 03/04/24 20:42 05:55 WBC 20.7 H 17.2 H RBC 1.66 L 1.60 L Hgb 7.1 L 6.9 L* Hct 20.1 L* 19.3 L* MCV 120.9 H 120.5 H MCH 42.9 H 42.9 H MCHC 35.5 35.6 RDW 15.9 H 16.1 H Plt Count 94 L 84 L Neut % (Auto) 84.0 H 80.3 H Lymph % (Auto) 6.8 L 8.4 L [place] % (Auto) 8.1 9.0 Eos % (Auto) 0.9 L 1.8 L Baso % (Auto) 0.2 0.5 Neut # (Auto) 26800 H 10754 H Lymph # (Auto) 1400 1400 [place] # (Auto) 1700 H 1600 H Eos # (Auto) 200 300 Baso # (Auto) 0 100 Platelet Estimate Decreased on smear RBC Morphology See below Anisocytosis 1+ H Macrocytosis 2+ H Sodium Potassium Chloride Carbon Dioxide BUN Creatinine Estimated GFR BUN/Creatinine Ratio Glucose Lactate Calcium C-Reactive Protein Nasal Screen MRSA (PCR) A.calcoaceticus-baumannii cmplx PCR Bacteroides fragilis Jennifer albicans (PCR) Jennifer auris (PCR) C. glabrata (PCR) C. krusei (PCR) C. parapsilosis (PCR) C. tropicalis (PCR) C. neoform/gattii (PCR) Enterobacterales (PCR) E. cloacae complex PCR Enterococc faecalis PCR Enterococc faecium PCR E. coli (PCR) H. influenzae (PCR) Klebsiella aerogenes (PCR) Klebsiella oxytoca PCR Klebsiella pneumoniae List. monocytogenes PCR N. meningitidis (PCR) Proteus species (PCR) Salmonella spp. (PCR) Serratia marcescens PCR Staphylococcus sp PCR Staph aureus (PCR) mecA/C & MREJ Resist Gene mecA/C-Methicil Resis Gene mcr-1 Colistin Res Gene PCR Staph epidermidis (PCR) Staph lugdunensis PCR S. maltophilia (PCR) Streptococcus sp PCR Group A Strep (PCR) Strep agalactiae (PCR) Strep pneumoniae (PCR) P. aeruginosa (PCR) Alberto/B-Vanco Res Genes blaIMP Car res Gene PCR KPC-Carbap Res Gene PCR blaNDM Car Res Gene PCR OXA-48 Carbapenem Resis Gene (PCR) blaVIM Car Res Gene PCR CTX-M Gene Resistance (PCR) [facility] Medical History (Updated 03/03/24 @ 03:10 by Tito Fong MD) Gallstones Normal colonoscopy Normocytic anemia Alcoholic cirrhosis Hepatitis B Family History Other Colon cancer Stomach cancer Social History household members: spouse and children Smoking Status: Never smoker alcohol intake: never Assessment & Plan Assessment & Plan narrative: 68 y/o with PMH of alcoholic liver cirrhosis and hepatitis B, presented confused, febrile and diagnosed with Covid 19 and acute on chronic hyponatremia of 119. Workup showing anasarca, cholelithiasis, leukocytosis, hypotension since the arrival to unit. Initially encephalopathic, with normal ammonia level. Denies abdominal pain, chest pain or shortness of breath. CXR shows cardiomegaly, Rt pleural effusion and perihilar infiltrates. Not hypoxemic or tachypneic at rest. Given Lasix and Rocephin in the ED. Admitted with likely hyponatremia, likely CHF, probable PNA, Covid 19 Patient was more alert later in AM of admission however blood pressure dropped requiring start of vasopressor. Blood cultures grew gram positive bacilli with unclear source. #Septic Shock, Gram Positive Bacilli Bacteremia, Source Unclear #Acute on Chronic Hypervolemic Hyponatremia #Acute on Chronic Anemia w/o evidence of bleed #Alcoholic Liver Cirrhosis #Acute on Chronic Anemia -Vancomycin -Levophed to maintain MAP >65 -Thiamine / folic acid -Maintain HgB >7, transfuse as indicated. Recheck CBC this afternoon -Recheck BMP this afternoon for sodium monitoring -follow culture results -lactulose to maintain 2-3 BM /day -hold all anticoagulation DVT prophylaxis - SCDs Time-Based Coding :: [TOTAL MINUTES] spent with patient and on the chart (including review of chart, obtaining history, exam, reviewing outside data, placing orders, documenting exam and treatment plan, and counseling patient) on [DATE].
[2024-03-04 07:07] LABS: Anisocytosis 1+; Macrocytosis 2+; Platelet Estimate Decreased on smear
[2024-03-04] MEDS: SPIRONOLACTONE 25 MG TABLET 50 MG PO (08:48)
[2024-03-04] MEDS: FOLIC ACID 1 MG TABLET PO (08:48)
[2024-03-04] MEDS: SODIUM CHLORIDE 0.9% FLUSH 10 ML IV ×2 (08:49→21:00)
[2024-03-04] MEDS: THIAMINE 500 MG in SODIUM CHLORIDE 0.9% 100 ML 420 MG IV (08:49)
[2024-03-04] MEDS: VANCOMYCIN 1,000 MG/200 ML PIGGYBACK 200 MG IV ×2 (11:57→22:58)
[2024-03-04 18:02] LABS: Hemoglobin 8.5 g/dL (12.0-16.0)
[2024-03-04] MEDS: LACTULOSE 20 GM/30 ML SOLUTION PO (21:00)
[2024-03-05] VITALS (45 sets, daily range): BP systolic 97–143; BP diastolic 49–64; PULSE 66–85; RESP 13–26; TEMP 36.6–37.1; O2SAT 94–100
[2024-03-05 05:39] LABS: Hematocrit 21.9 % (36-46); Hemoglobin 7.9 g/dL (12.0-16.0); Mean Corpuscular HGB Conc 36.3 % (30-36); Platelet Count 74 X10^3/uL (150-400); Red Blood Cell Count 1.94 X10^6/uL (4.0-5.2); Red Cell Distribution Width 20.6 % (11.6-14.8); White Blood Cell Count 12.7 X10^3/uL (4.5-11.0)
[2024-03-05 05:41] LABS: Add Manual Diff / Slide Review YES
[2024-03-05 05:55] LABS: Alanine Aminotransferase 29 IU/L (<35); Alkaline Phosphatase 94 U/L (38-126); Aspartate Aminotransferase 60 IU/L (14-36); BUN Creatinine Ratio 46.7 (6-22); Bilirubin Total 15.5 mg/dL (0.2-1.3); Blood Urea Nitrogen 35 mg/dL (7-17); Calcium 8.9 mg/dL (8.4-10.2); Carbon Dioxide 21 mmol/L (22-32); Chloride 97 mmol/L (98-107); Estimated Glomerular Filt Rate > 60 mL/min (>60); Glucose 88 mg/dL (80-110); HEMOLYSIS < 15 (0-50); Sodium 125 mmol/L (137-145)
[2024-03-05 06:41] LABS: Neutrophils Absolute Manual 10033 /uL (3000-5900); Total Cells Counted 100
[2024-03-05 06:42] LABS: Acanthocytes 2+; Anisocytosis 3+; Microcytosis 2+; Platelet Estimate Decreased on smear; Poikilocytosis 3+
--- NOTE | 2024-03-05 07:15 | P.PN_ITS ---
Subjective Subjective Interval history: Patient was cirrhosis and bacteremia. She was afebrile since 03/02. S: She was still fatigued, but feels better. No fevers, or chills. She has 2 positive blood cultures with Gram-negative bacillus. She also has history of longstanding cirrhosis. She was interested in going home. Physical therapy has not worked with her yet. She denies fevers, chills, rhinorrhea, or cough. She is not confused. Exam Vital Signs (past 8 hours): - 03/04/24 23:30 03/04/24 23:30 03/05/24 00:00 Temperature Pulse Rate 75 76 Respiratory Rate 16 16 Blood Pressure 109/53 L Pulse Oximetry 96 96 Oxygen Delivery Method 03/05/24 00:00 03/05/24 00:30 03/05/24 00:30 Temperature Pulse Rate 78 Respiratory Rate 17 Blood Pressure 113/55 L 111/53 L Pulse Oximetry 95 Oxygen Delivery Method 03/05/24 01:00 03/05/24 01:00 03/05/24 01:30 Temperature Pulse Rate 76 Respiratory Rate 15 Blood Pressure 105/52 L 116/58 L Pulse Oximetry 96 Oxygen Delivery Method 03/05/24 01:30 03/05/24 02:00 03/05/24 02:00 Temperature Pulse Rate 76 Respiratory Rate 26 H Blood Pressure 127/58 L Pulse Oximetry 96 Oxygen Delivery Method Room Air 03/05/24 02:00 03/05/24 02:30 03/05/24 02:30 Temperature Pulse Rate 67 66 Respiratory Rate 13 14 Blood Pressure 110/55 L Pulse Oximetry 96 96 Oxygen Delivery Method 03/05/24 03:00 03/05/24 03:00 03/05/24 03:30 Temperature Pulse Rate 70 Respiratory Rate 14 Blood Pressure 119/56 L 117/58 L Pulse Oximetry 95 Oxygen Delivery Method 03/05/24 03:30 03/05/24 04:00 03/05/24 04:00 Temperature Pulse Rate 72 73 Respiratory Rate 17 14 Blood Pressure 111/56 L Pulse Oximetry 98 97 Oxygen Delivery Method 03/05/24 04:30 03/05/24 04:30 03/05/24 05:00 Temperature Pulse Rate 74 76 Respiratory Rate 15 23 Blood Pressure 111/51 L Pulse Oximetry 97 98 Oxygen Delivery Method 03/05/24 05:00 03/05/24 05:07 03/05/24 05:30 Temperature 98.2 F Pulse Rate 74 Respiratory Rate 21 Blood Pressure 108/52 L Pulse Oximetry 98 Oxygen Delivery Method 03/05/24 05:30 03/05/24 06:00 03/05/24 06:00 Temperature Pulse Rate Respiratory Rate Blood Pressure 110/53 L 109/55 L Pulse Oximetry Oxygen Delivery Method Room Air 03/05/24 06:00 Temperature Pulse Rate 72 Respiratory Rate 16 Blood Pressure Pulse Oximetry 97 Oxygen Delivery Method Oxygen Delivery Method Room Air Oxygen Flow Rate 0 Narrative Exam Narrative: NAD, alert and oriented. Fluent speech. She was very jaundiced. Lungs are clear, normal rate and effort. Heart is regular, no murmur gallop or rub. Abdomen is soft, non distended. Extremities are free of edema. Objective Labs 03/05/24 04:25 03/05/24 04:25 Labs: Laboratory Results - last 24 hr 03/04/24 03/04/24 03/05/24 08:41 17:48 04:25 WBC 12.7 H RBC 1.94 L Hgb 8.5 L 7.9 L Hct 24.0 L 21.9 L MCV 113.0 H D MCH 41.0 H MCHC 36.3 H RDW 20.6 H Plt Count 74 L Neut % (Auto) Not Reportable Lymph % (Auto) Not Reportable [place] % (Auto) Not Reportable Eos % (Auto) Not Reportable Baso % (Auto) Not Reportable Lymph # (Auto) Not Reportable [place] # (Auto) Not Reportable Baso # (Auto) Not Reportable Total Counted 100 Seg Neutrophils % 79.0 H Lymphocytes % (Manual) 11.0 L Monocytes % (Manual) 4.0 Eosinophils % (Manual) 2.0 Metamyelocytes % 3.0 H Myelocytes % 1.0 H Neutrophils # (Manual) 32481 H Platelet Estimate Decreased on smear RBC Morphology See below Poikilocytosis 3+ H Anisocytosis 3+ H D Microcytosis 2+ H Acanthocytes (Spur) 2+ H Sodium 125 L Potassium 5.0 Chloride 97 L Carbon Dioxide 21 L BUN 35 H Creatinine 0.75 Estimated GFR > 60 BUN/Creatinine Ratio 46.7 H Glucose 88 Calcium 8.9 Total Bilirubin 15.5 H AST 60 H ALT 29 Alkaline Phosphatase 94 Total Protein 6.0 L Albumin 3.0 L Globulin 3.0 Albumin/Globulin Ratio 1.0 Blood Type O Positive Antibody Screen Negative Crossmatch See Detail [facility] Medical History Gallstones Normal colonoscopy Normocytic anemia Alcoholic cirrhosis Hepatitis B Family History Other Colon cancer Stomach cancer Social History household members: spouse and children Smoking Status: Never smoker alcohol intake: never Assessment & Plan Assessment & Plan narrative: 1. Septic Shock, present on admission and resolved. 2. Gram negative bacilli Bacteremia, Source Unclear . Present on admission and improving. 3. Acute on Chronic Hypervolemic Hyponatremia, present on admission and stable. 4. Acute on Chronic Anemia w/o evidence of bleed, present on admission and stable. 5. Alcoholic Liver Cirrhosis, present on admission and active. PLAN: -continue antibiotics -follow cultures -imaging reviewed, source remains unclear. -out of bed, advance activity. -PT eval -discuss with the Infectious Disease. GIANA: 03/06. Time-Based Coding :: [TOTAL MINUTES] spent with patient and on the chart (including review of chart, obtaining history, exam, reviewing outside data, placing orders, documenting exam and treatment plan, and counseling patient) on [DATE].
[2024-03-05] MEDS: SPIRONOLACTONE 25 MG TABLET 50 MG PO (08:19)
[2024-03-05] MEDS: THIAMINE 100 MG TABLET PO (08:19)
[2024-03-05] MEDS: FOLIC ACID 1 MG TABLET PO (08:19)
[2024-03-05] MEDS: LACTULOSE 20 GM/30 ML SOLUTION PO ×2 (08:19→20:45)
[2024-03-05] MEDS: SODIUM CHLORIDE 0.9% FLUSH 10 ML IV ×2 (08:19→20:45)
[2024-03-05 10:17] LABS: Vancomycin Trough 22.1 ug/mL (10-20)
[2024-03-05 10:43] LABS: Acinetobacter calcoa-baumannii Not Detected (Not Detect); Bacteroides fragilis Not Detected (Not Detect); CTX-M Resistance Not Detected (Not Detect); Candida albicans Not Detected (Not Detect); Candida auris Not Detected (Not Detect); Candida glabrata Not Detected (Not Detect); Candida krusei Not Detected (Not Detect); Candida parapsilosis Not Detected (Not Detect); Candida tropicalis Not Detected (Not Detect); Cryptococcus neoformans/gatti Not Detected (Not Detect); Enterobacter cloacae complex Not Detected (Not Detect); Enterobacterales Detected (Not Detect); Enterococcus faecalis Not Detected (Not Detect); Enterococcus faecium Not Detected (Not Detect); Haemophilus influenzae Not Detected (Not Detect); IMP Resistance Not Detected (Not Detect); KPC Resistance Not Detected (Not Detect); Klebsiella aerogenes Not Detected (Not Detect); Listeria monocytogenes Not Detected (Not Detect); NDM Resistance Not Detected (Not Detect); Neisseria meningitidis Not Detected (Not Detect); OXA-48-like Resistance Not Detected (Not Detect); Proteus species Not Detected (Not Detect); Pseudomonas aeruginosa Not Detected (Not Detect); Salmonella species Not Detected (Not Detect); Serratia marcescens Not Detected (Not Detect); Staphylococcus epidermidis Not Detected (Not Detect); Staphylococcus lugdunensis Not Detected (Not Detect); Staphylococcus species Not Detected (Not Detect); Stenotrophomonas maltophilia Not Detected (Not Detect); Streptococcus agalactiae (Gr B Not Detected (Not Detect); Streptococcus pneumonia Not Detected (Not Detect); Streptococcus pyogenes (Gr A) Not Detected (Not Detect); Streptococcus species Not Detected (Not Detect); VIM Resistance Not Detected (Not Detect); mcr-1 Resistance Not Detected (Not Detect)
--- NOTE | 2024-03-05 15:49 | CM.DPC ---
DCP Continued: Reviewed EMR and team rounds for pt?s medical status. Per hospitalist, cultures still pending to determine IV abx course at discharge, possibly need a agency to follow if home Infusion necessary. Plan: Anticipating discharge with family when medically stable. CM Team will continue to follow for coordination of discharge plans. LICHA High
[2024-03-06] VITALS: BP 108/52; PULSE 79; RESP 16; O2SAT 97
[2024-03-06 01:00] VITALS: BP 114/55; PULSE 79; RESP 22; O2SAT 96
[2024-03-06 02:00] VITALS: BP 116/54; PULSE 74; RESP 21; O2SAT 96
[2024-03-06 03:00] VITALS: BP 120/60; PULSE 75; RESP 16; O2SAT 97
[2024-03-06 04:22] LABS: Hematocrit 22.9 % (36-46); Hemoglobin 8.1 g/dL (12.0-16.0); Mean Corpuscular HGB Conc 35.6 % (30-36); Mean Corpuscular Volume 115.1 fL (80-100); Platelet Count 78 X10^3/uL (150-400); Red Blood Cell Count 1.99 X10^6/uL (4.0-5.2); Red Cell Distribution Width 19.5 % (11.6-14.8); White Blood Cell Count 10.5 X10^3/uL (4.5-11.0)
[2024-03-06 04:27] LABS: Add Manual Diff / Slide Review YES
[2024-03-06 04:38] LABS: Neutrophils Absolute Manual 7035 /uL (3000-5900); Total Cells Counted 100
[2024-03-06 04:39] LABS: Alanine Aminotransferase 30 IU/L (<35); Albumin 2.7 g/dL (3.5-5.0); Albumin Globulin Ratio 0.8 (1.0-2.8); Alkaline Phosphatase 90 U/L (38-126); Anisocytosis 2+; Aspartate Aminotransferase 52 IU/L (14-36); BUN Creatinine Ratio 49.1 (6-22); Bilirubin Total 13.4 mg/dL (0.2-1.3); Blood Urea Nitrogen 26 mg/dL (7-17); Calcium 8.7 mg/dL (8.4-10.2); Carbon Dioxide 23 mmol/L (22-32); Chloride 98 mmol/L (98-107); Estimated Glomerular Filt Rate > 60 mL/min (>60); Globulin 3.2 g/dL (1.7-4.1); Glucose 117 mg/dL (80-110); HEMOLYSIS < 15 (0-50); Macrocytosis 2+; Platelet Estimate Decreased on smear; Poikilocytosis 1+; Potassium 4.4 mmol/L (3.4-5.1); Sodium 125 mmol/L (137-145); Total Protein 5.9 g/dL (6.3-8.2)
[2024-03-06 07:00] VITALS: BP 122/58; PULSE 79; RESP 22; TEMP 36.9; O2SAT 96
--- NOTE | 2024-03-06 08:14 | PM.PN.1 ---
Subjective Subjective Interval history: Admitted with fatigue and bacteremia. S: Exam Vital Signs (past 8 hours): - 03/06/24 01:00 03/06/24 01:00 03/06/24 02:00 Pulse Rate 79 Respiratory Rate 22 Blood Pressure 114/55 L 116/54 L Pulse Oximetry 96 03/06/24 02:00 03/06/24 03:00 03/06/24 03:00 Pulse Rate 74 75 Respiratory Rate 21 16 Blood Pressure 120/60 Pulse Oximetry 96 97 Oxygen Delivery Method Room Air Oxygen Flow Rate 0 Narrative Exam Narrative: NAD, alert and oriented. Fluent speech. Jaundice. Lungs are clear, normal rate and effort. Heart is regular, no murmur gallop or rub. Abdomen is soft, non distended. Extremities are free of edema. Objective Labs 03/06/24 04:15 03/06/24 04:15 Labs: Laboratory Results - last 24 hr 03/03/24 03/05/24 03/06/24 20:30 09:26 04:15 WBC 10.5 RBC 1.99 L Hgb 8.1 L Hct 22.9 L MCV 115.1 H MCH 41.0 H MCHC 35.6 RDW 19.5 H Plt Count 78 L Neut % (Auto) Not Reportable Lymph % (Auto) Not Reportable [place] % (Auto) Not Reportable Eos % (Auto) Not Reportable Baso % (Auto) Not Reportable Lymph # (Auto) Not Reportable [place] # (Auto) Not Reportable Baso # (Auto) Not Reportable Total Counted 100 Seg Neutrophils % 67.0 Lymphocytes % (Manual) 21.0 L Monocytes % (Manual) 7.0 Eosinophils % (Manual) 3.0 Basophils % (Manual) 1.0 Metamyelocytes % 1.0 H Neutrophils # (Manual) 7035 H Platelet Estimate Decreased on smear RBC Morphology See below Poikilocytosis 1+ H D Anisocytosis 2+ H Macrocytosis 2+ H Sodium 125 L Potassium 4.4 Chloride 98 Carbon Dioxide 23 BUN 26 H Creatinine 0.53 Estimated GFR > 60 BUN/Creatinine Ratio 49.1 H Glucose 117 H Calcium 8.7 Total Bilirubin 13.4 H AST 52 H ALT 30 Alkaline Phosphatase 90 Total Protein 5.9 L Albumin 2.7 L Globulin 3.2 Albumin/Globulin Ratio 0.8 L Vancomycin Trough 22.1 H* A.calcoaceticus-baumannii cmplx PCR Not detected Bacteroides fragilis Not detected Jennifer albicans (PCR) Not detected Jennifer auris (PCR) Not detected C. glabrata (PCR) Not detected C. krusei (PCR) Not detected C. parapsilosis (PCR) Not detected C. tropicalis (PCR) Not detected C. neoform/gattii (PCR) Not detected Enterobacterales (PCR) Detected E. cloacae complex PCR Not detected Enterococc faecalis PCR Not detected Enterococc faecium PCR Not detected E. coli (PCR) Detected H. influenzae (PCR) Not detected Klebsiella aerogenes (PCR) Not detected Klebsiella oxytoca PCR Not detected Klebsiella pneumoniae Not detected List. monocytogenes PCR Not detected N. meningitidis (PCR) Not detected Proteus species (PCR) Not detected Salmonella spp. (PCR) Not detected Serratia marcescens PCR Not detected Staphylococcus sp PCR Not detected Staph aureus (PCR) Not detected mecA/C & MREJ Resist Gene Not applicable mecA/C-Methicil Resis Gene Not applicable mcr-1 Colistin Res Gene PCR Not detected Staph epidermidis (PCR) Not detected Staph lugdunensis PCR Not detected S. maltophilia (PCR) Not detected Streptococcus sp PCR Not detected Group A Strep (PCR) Not detected Strep agalactiae (PCR) Not detected Strep pneumoniae (PCR) Not detected P. aeruginosa (PCR) Not detected Alberto/B-Vanco Res Genes Not applicable blaIMP Car res Gene PCR Not detected KPC-Carbap Res Gene PCR Not detected blaNDM Car Res Gene PCR Not detected OXA-48 Carbapenem Resis Gene (PCR) Not detected blaVIM Car Res Gene PCR Not detected CTX-M Gene Resistance (PCR) Not detected PFSH Medical History Gallstones Normal colonoscopy Normocytic anemia Alcoholic cirrhosis Hepatitis B Family History Other Colon cancer Stomach cancer Social History household members: spouse and children Smoking Status: Never smoker alcohol intake: never Assessment & Plan Time-Based Coding :: [TOTAL MINUTES] spent with patient and on the chart (including review of chart, obtaining history, exam, reviewing outside data, placing orders, documenting exam and treatment plan, and counseling patient) on [DATE].
[2024-03-06] MEDS: FOLIC ACID 1 MG TABLET PO (08:56)
[2024-03-06] MEDS: THIAMINE 100 MG TABLET PO (08:56)
[2024-03-06] MEDS: SODIUM CHLORIDE 0.9% FLUSH 10 ML IV (08:56)
[2024-03-06] MEDS: SPIRONOLACTONE 25 MG TABLET 50 MG PO (08:56)
--- NOTE | 2024-03-06 09:45 | PT.IIE ---
Current Diagnoses Anemia, unspecified (03/03/24) Hypo-osmolality and hyponatremia (03/03/24) Alcoholic cirrhosis of liver without ascites (03/03/24) Calculus of gallbladder without cholecystitis without obstruction (03/03/24) COVID-19 (03/03/24) Medical History (Last Reviewed 03/05/24 @ 07:16 by Houston Shah MD) Alcoholic cirrhosis Gallstones Hepatitis B Normal colonoscopy Normocytic anemia Physical Therapy Inpatient Evaluation/Re-Eval M1 PT/OT-IP Prior Functional Status Start: 03/06/24 10:34 Freq: NEEDED Status: Active Protocol: Document 03/06/24 09:45 AB (Rec: 03/06/24 10:49 AB [id number]) Medical Review Prior Functional Status Medical History Reviewed Yes Communication able to make needs known; slow responses to questions Mobility and Gait pt stated that she was independent with all mobilities and ambulation without AD Social History Household Members spouse,children Living Arrangements House Number of Floors (Floors) One Floor Number of Stairs To Enter/Railing? 1 step to enter Home Environment Standard Height Toilet,Walk in Shower Home Equipment Shower Seat without Backrest Additional Social History Comment pt lives with spouse and son M2 PT-IP Current Condition Start: 03/06/24 10:34 Freq: NEEDED Status: Active Protocol: Document 03/06/24 09:45 AB (Rec: 03/06/24 10:49 AB [id number]) Physical Therapy Current Condition Current Condition Evaluation Date 03/06/24 Treatment Diagnosis hyponatremia; Covid; UTI; difficulty in walking Onset Date 03/03/24 M3 PT-IP Subjective Start: 03/06/24 10:34 Freq: NEEDED Status: Active Protocol: Document 03/06/24 09:45 AB (Rec: 03/06/24 10:49 AB [id number]) Subjective Physical Therapy Visit Type Type Initial Evaluation Visit Start Time 09:45 Visit Stop Time 10:30 Number of NEUROLOGY DIRECTOR Visits 0 Physical Therapy Visit Comments Patient Comments agreeable to do PT Therapy Pain Assessment Pain Present Pain Present Denied Pain M4 PT-IP Mobility and Gait Start: 03/06/24 10:34 Freq: NEEDED Status: Active Protocol: Document 03/06/24 09:45 AB (Rec: 03/06/24 10:49 AB [id number]) PT-Bed Mobility Assessment Supine to Sit Supine to Sit Standby Assistance Sit to Supine Sit to Supine Standby Assistance PT-Transfer Assessment Sit to and From Stand Sit to and from Stand Standby Assistance,Contact Guard Assistance,1 Person Assistance,Use of Upper Extremities Equipment Transfer Assistive Device Gait Belt,Front Wheeled Walker Orthotic/Prosthetic Devices or Brace: No Transfers Transfer Destination Toilet Transfer Technique ambulated Transfer Ability Level of Assist Standby Assistance,Contact Guard Assistance,1 Person Assistance,Use of Upper Extremities Comments Mobility Comments pt sitting on the chair and agreeable to do PT. O2 sat at RA: 99%. obtained PLOF and home set up from pt. pt able to answer questions but slow to respond. pt requested to use the toilet . completed sit to stand CGA and ambulated to the toilet using FWW CGA. pt completed sit to stand from the toilet CGA and use of grab bar. pt ambulated to the sink using FWW CGA. able to complete handwashing and grooming while standing using FWW for support SBA. pt agreed to ambulate in room and completed ~ 40 ft using FWW SBA to occasional CGA. pt sat on EOB and completed bed mobility sit <>supine SBA. Assessed pt ambulation without AD and ambulated in room ~ 15 ft CGA and cues. pt tends to hold on to bed/counter for support. presnts with shuffling gait. pt sat back on chair and positioned. call ight and table placed within reach. informed pt regarding continued use of FWW upon d/c and to inform family that she needs one. pt agreed and understood. informed pt regarding options of borrow or purchasing one. informed nurse. Gait Assessment Gait Gait Assistance Required: Standby Assistance,Contact Guard Assist Distance (Feet) 40 Able to Maintain Weight Bearing Status Yes During Gait Assistive Devices Assistive Device None,Gait Belt,Front Wheeled Walker Orthotic/Prosthetic Devices or Brace: No Gait Deviations General Gait Pattern Antalgic,Decreased Stride Length,Decreased Feet Clearance,Step-to Gait Factors Limiting Gait Function Factors Limiting Gait Function Decreased Activity Tolerance, Decreased Strength,Difficulty Following Directions,Limited Range of Motion,Poor Balance, Poor Safety Awareness PT-Balance Assessment Sitting Balance and Reactions Static Sitting Balance Ability Normal Dynamic Sitting Balance Ability Good Standing Balance and Reactions Static Standing Balance Ability Fair Dynamic Standing Balance Ability Fair Device Used FWW M5 PT-IP Objective Assessments Start: 03/06/24 10:34 Freq: NEEDED Status: Active Protocol: Document 03/06/24 09:45 AB (Rec: 03/06/24 10:49 AB [id number]) Orientation Orientation/Cognition Level of Alertness Alert Orientation Name,Place,Situation Safety Awareness Decreased Safety Awareness Memory Description Short Term Impaired Gross Range of Motion Lower Extremity ROM Assessment Within Functional Limits Strength Lower Extremity Strength Hip 4-/5 Knee 4-/5 Muscle Tone Muscle Tone WNL Yes M6 PT-IP Treatment Start: 03/06/24 10:34 Freq: NEEDED Status: Active Protocol: Document 03/06/24 09:45 AB (Rec: 03/06/24 10:49 AB [id number]) Physical Therapy Treatment Education Education Provided Safety M7 PT-IP Assessment and Plan Start: 03/06/24 10:34 Freq: NEEDED Status: Active Protocol: Document 03/06/24 09:45 AB (Rec: 03/06/24 10:49 AB [id number]) PT Summary Assessment and Plan Potential Rehabilitation Potential Fair Status of Condition at Evaluation Evolving Summary Impairments Pain,ROM,Strength,Balance, Coordination,Sensation,Tone, Cognition,Bed Mobility, Transfers,Gait,Activity Tolerance Assessment Summary pt is a 68 y/o F who presented with AMS. pt admitted for hyponatremia, anemia, UTI. pt also is Covid + and has alcholic liver cirrhosis. pt requiring SBA for bed mobility , SBA to CGA for transfers and ambulation. recommending use of FWW at this time. pt plans to go home and family will assist pt. Goals Bed Mobility Goal Independent Transfer Goal Independent,Front Wheeled Walker Gait Goal Independent,Front Wheel Walker Gait Distance 200 Other Goals improve transfers and ambulation without AD ~ 300 ft mod I up/down 1 step SBA Days to Meet Goals 10 Frequency of Treatment Frequency Of Treatment Once a Day Treatment Plan Physical Therapy Treatment Plan Bed Mobility Training,Transfer Training,Gait Training, Therapeutic Exercise,Balance Retraining,Discharge Planning, Hot or Cold Pack,Neuromuscular Re-ed,Coordination Retraining ,Manual Therapy Precautions Other Precautions Covid precautions Recommendations To Nursing Amount of Assist Needed 1 Person Assist Discharge Recommendations PT Discharge Recommendations Home with Assistance Equipment Needed for Home Before FWW Discharge Transportation Needs at Discharge Private Vehicle
[2024-03-06] MEDS: cefTRIAXone 2,000 MG in SODIUM CHLORIDE 0.9% 100 ML 200 MG IV (10:46)
--- NOTE | 2024-03-06 11:49 | CM.DPC ---
DCP Continued: Reviewed EMR and team rounds for pt?s medical status. Per hospitalist, pt stating preference to discharge home. Cultures indicated pt can be discharged with PO abx. Per PT evaluation, pt recommended to return home with family assistance. No dc needs identified at this time. Plan: Anticipating discharge home with family in POV when medically cleared. CM Team will continue to follow for coordination of discharge plans. LICHA High
[2024-03-06 12:00] VITALS: BP 147/61; PULSE 82; RESP 22; TEMP 36.9; O2SAT 97
--- NOTE | 2024-03-06 12:34 | PM.DS.1 ---
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 Workup showing anasarca, cholelithiasis, leukocytosis, hypotension since the arrival to unit. Initially encephalopathic, with normal ammonia level. Denies abdominal pain, chest pain or shortness of breath. CXR shows cardiomegaly, Rt pleural effusion and perihilar infiltrates. Not hypoxemic or tachypneic at rest. Given Lasix and Rocephin in the ED. Admitted with likely hyponatremia, likely CHF, probable PNA, Covid 19 Discharge Providers Provider Date of admission: 03/03/24 00:50 Discharge Date: 03/07/24 Primary care physician: Audrey Hill PA-C Consults: 03/05/24 14:52 Consult to Physical Therapy Evaluate & Treat Comment: Physician Instructions: Evaluate and Treat 03/05/24 18:44 Consult to Wound Care Routine Comment: Consulting Provider: Lucille- Wound Care Discharge provider: Houston Shah MD Summary Hospital Course Discharge Diagnosis: 1. Septic Shock, present on admission and resolved. 2. E. coli bacteremia, Source Unclear (possible enteral translocation) . Present on admission and improving. 3. Acute on Chronic Hypervolemic Hyponatremia, present on admission and stable. 4. Acute on Chronic Anemia w/o evidence of bleed, present on admission and stable. 5. Alcoholic Liver Cirrhosis with Jaundice (no alcohol since Jun 2023), present on admission and active. 6. Covid positive, present on admission and active. 7. Obesity class 2 with BMI of 35.6, present on admission stable. 8. Initial septic encephalopathy, present on admission and resolved. Hospital Course: The patient is a 68-year-old female with a history of a liver cirrhosis related to alcohol use and hepatitis-B. She presented with sepsis and confusion. She was initially febrile and had COVID which was positive. She would acute on chronic hyponatremia with a sodium of 119 and anasarca. Her chest x-ray revealed cardiomegaly and pleural effusion. She was started on empiric antibiotics, and diuresed. She resolved her confusion relatively quickly. She would require vasopressors initially for hypotension was able to wean off relatively quickly. She did have positive blood cultures which ultimately were identified as E coli, lafleur sensitive. She missed a dose of antibiotics in March 05, she was given a dose of ceftriaxone on 03/06. She had no fever and a normal mental status. Her sodium had improved towards her baseline. She was discussed with Infectious Disease and we will give her 13 additional days of Cipro 500 b.i.d. for a 14 day course. We will count 914 is day 1 given her 1 missed dose. There was no clear source identified for her bacteremia although translocation May be a possibility. Status at Discharge Cognitive/behavioral status at discharge: oriented Functional status at discharge: independent ambulation Overall status at discharge: patient is back to baseline Time Spent with Patient Time spent: Greater than 30 minutes Exam Vital Signs (past 8 hours): - 03/06/24 07:00 03/06/24 07:00 Temperature 98.5 F Pulse Rate 79 Respiratory Rate 22 Blood Pressure 122/58 L Pulse Oximetry 96 Oxygen Delivery Method Room Air Oxygen Flow Rate 0 Oxygen Delivery Method Room Air Oxygen Flow Rate 0 Narrative Exam Narrative: NAD, alert and oriented. Fluent speech. Normal mental status. She was quite jaundice. Lungs are clear, normal rate and effort. Heart is regular, no murmur gallop or rub. Abdomen is soft, non distended. Extremities are free of edema. Objective ECG Impression: Normal sinus rhythm Nonspecific ST and T wave abnormality Imaging Multiple studies:: Radiologist's impression: Chest x-ray (03/03): Lungs and pleura: Lungs are clear. No pleural effusions or pneumothorax. Mediastinum: Mediastinal contours appear normal. Heart size is normal. Bones and chest wall: No suspicious bony lesions. Overlying soft tissues appear unremarkable. IMPRESSION: Left upper extremity approach PICC tip projects over the high SVC. Echo: Normal LV size and wall thickness. Normal wall motion and LV systolic function. Ejection fraction is 60-65%. Moderate left atrial enlargement; otherwise no valvular abnormalities. Mild mitral annular calcification with moderate associated mitral regurgitation. Aortic valve leaflets are mildly thickened and calcified with moderate associated aortic stenosis. Peak velocity is 3 m/s mean gradient is 20 mmHg. Calculated valve area is 0.9 type mapper?. Estimated PA systolic pressure 61 mmHg assuming right atrial pressure 15 mmHg. RV size is normal and RV is functioning normally. No prior study available for comparison. Abdomen and pelvis CT: 1. Cirrhosis with portal hypertension. Multiple likely hepatic cysts unchanged from prior study. 2. Distended gallbladder with multiple gallstones and gallbladder wall thickening as well as pericholecystic fluid unchanged from previous study and is concerning for cholecystitis. Clinical correlation is recommended. 3. Generalized anasarca suggestive of 3rd spacing new since previous study. 4. No bowel obstruction or abnormal bowel wall thickening. No abscess collection. No free fluid or free air. [id number]-qlhedgnn constipation. No significant ascites fluid. Head CT: No acute intracranial pathology. Chest x-ray (03/02): Cardiomegaly and mild congestion with small right pleural effusion and suggestion of bilateral perihilar and infrahilar infiltrates. No pneumothorax. Labs 03/06/24 04:15 03/06/24 04:15 Labs: Laboratory Results - last 24 hr 03/06/24 04:15 WBC 10.5 RBC 1.99 L Hgb 8.1 L Hct 22.9 L MCV 115.1 H MCH 41.0 H MCHC 35.6 RDW 19.5 H Plt Count 78 L Neut % (Auto) Not Reportable Lymph % (Auto) Not Reportable [place] % (Auto) Not Reportable Eos % (Auto) Not Reportable Baso % (Auto) Not Reportable Lymph # (Auto) Not Reportable [place] # (Auto) Not Reportable Baso # (Auto) Not Reportable Total Counted 100 Seg Neutrophils % 67.0 Lymphocytes % (Manual) 21.0 L Monocytes % (Manual) 7.0 Eosinophils % (Manual) 3.0 Basophils % (Manual) 1.0 Metamyelocytes % 1.0 H Neutrophils # (Manual) 7035 H Platelet Estimate Decreased on smear RBC Morphology See below Poikilocytosis 1+ H D Anisocytosis 2+ H Macrocytosis 2+ H Sodium 125 L Potassium 4.4 Chloride 98 Carbon Dioxide 23 BUN 26 H Creatinine 0.53 Estimated GFR > 60 BUN/Creatinine Ratio 49.1 H Glucose 117 H Calcium 8.7 Total Bilirubin 13.4 H AST 52 H ALT 30 Alkaline Phosphatase 90 Total Protein 5.9 L Albumin 2.7 L Globulin 3.2 Albumin/Globulin Ratio 0.8 L PFSH Medical History Gallstones Normal colonoscopy Normocytic anemia Alcoholic cirrhosis Hepatitis B Family History Other Colon cancer Stomach cancer Social History household members: spouse and children Smoking Status: Never smoker alcohol intake: never Discharge Assessment & Plan Assessment and Plan Assessment: 1. Septic Shock, present on admission and resolved. 2. E. coliacteremia, Source Unclear (possible enteral translocation) . Present on admission and improving. 3. Acute on Chronic Hypervolemic Hyponatremia, present on admission and stable. 4. Acute on Chronic Anemia w/o evidence of bleed, present on admission and stable. 5. Alcoholic Liver Cirrhosis with Jaundice (no alcohol since Jun 2023), present on admission and active. 6. Covid positive, present on admission and active. 7. Obesity class 2 with BMI of 35.6, present on admission stable. 8. Initial septic encephalopathy, present on admission and resolved. Plan of Treatment: Discharge home with an additional 13 days of Cipro 500 p.o. b.i.d.. We will also notify her GI doctor, Dr. Merrill on Friday. We do not have her chronic bilirubin levels. Note, imaging did show a distended gallbladder but in context of generalized anasarca. There is also no ascites. Clinically she did not appear to have had quadrant pain or cholecystitis. In addition, there was no evidence of duct obstruction or clinical cholangitis. Discharge Plan Discharge Plan Patient Disposition: Home Provider Discharge Comment: Stable for discharge home on oral antibiotics. Discharge orders & Medications Prescriptions: New ciprofloxacin HCl [Cipro] 500 mg tablet 500 mg PO BID Qty: 26 0RF Continued vitamin E 1 tab PO DAILY oxycodone 5 mg tablet 5 mg PO Q4H PRN (Reason: pain) furosemide 40 mg tablet 40 mg PO DAILY spironolactone 50 mg Tablet 50 mg 3XW cholecalciferol (vitamin D3) [Vitamin D3] 25 mcg (1,000 unit) Tablet 1,000 unit PO DAILY Follow up/Referrals: Audrey Hill PA-C [Primary Care Provider] - Discharge Health Status Multidrug resistant organism: No MDRO Diet/Activity/Treatments Diet: Low-sodium Skin/Wound/Dressing Care Report to your healthcare provider any signs of infection, such as:: chills, fever and increased pain Visit Report/Discharge Packet Stand Alone Forms: Patient Portal/API Discharge Data Primary Care Provider: Audrey Hill
== END 2024-03-06 13:30 | disposition home or self-care (01) | DRG 871 ==
LOC: ED 21:49 → AC 03-03 00:51 → ICU 03-03 01:17
PROVIDERS: Student in an Organized Health Care Education/Training Program; Admitting Provider Internal Medicine; Emergency Provider Emergency Medicine; PCP Physician Assistant; Referring Provider Emergency Medicine; Visit Provider Internal Medicine
DX: A41.51 Sepsis due to Escherichia coli [E. coli] (principal); G93.41 Metabolic encephalopathy; R65.21 Severe sepsis with septic shock; U07.1 COVID-19; E87.1 Hypo-osmolality and hyponatremia; B19.10 Unspecified viral hepatitis B without hepatic coma; J90 Pleural effusion, not elsewhere classified; K70.30 Alcoholic cirrhosis of liver without ascites; D69.6 Thrombocytopenia, unspecified; R60.1 Generalized edema; D64.89 Other specified anemias; E66.8 Other obesity; Z68.35 Body mass index [BMI] 35.0-35.9, adult
CPT/HCPCS: 36415; 36430; 36569; 36592; 70450; 71045; 74177; 80048; 80053; 80202; 80320; 81001; 82140; 82550; 83605; 83880; 84145; 84484; 85007; 85014; 85018; 85025; 85610; 85730; 86140; 86850; 86900; 86901; 87040; 87086; 87154; 87186; 87205; 87633; 87797; 93005; 93306; 96365; 96375; 97162; 97530; 99285; 99291; P9016; J0696; J1940; J3475; P9041; Q9967

== ENCOUNTER → 2024-03-10 10:44 | Outpatient (CLI) | payer OTHER, MEDICARE, SELFPAY ==
[2024-03-03 00:53] VITALS: BMI 34.5
== END ==
PROVIDERS: PCP Physician Assistant; Referring Provider Physician Assistant; Visit Provider Surgery
DX: T81.89XA Other complications of procedures, not elsewhere classified, initial encounter (principal); S81.801A Unspecified open wound, right lower leg, initial encounter; L98.8 Other specified disorders of the skin and subcutaneous tissue; R60.0 Localized edema; K74.60 Unspecified cirrhosis of liver
CPT/HCPCS: 11042

== ENCOUNTER → 2024-03-17 12:57 | Outpatient (CLI) | payer OTHER, MEDICARE, SELFPAY ==
[2024-03-03 00:53] VITALS: BMI 34.5
== END ==
PROVIDERS: PCP Physician Assistant; Referring Provider Physician Assistant; Visit Provider Surgery
DX: S81.801A Unspecified open wound, right lower leg, initial encounter (principal); L98.8 Other specified disorders of the skin and subcutaneous tissue; R60.0 Localized edema; K74.60 Unspecified cirrhosis of liver
CPT/HCPCS: 11042; 99213

== ENCOUNTER → 2024-03-17 14:25 | Outpatient (CLI) | payer OTHER, SELFPAY ==
[2024-03-03 00:53] VITALS: BMI 34.5
[2024-03-17 15:42] LABS: Alanine Aminotransferase 39 IU/L (<35); Albumin 2.8 g/dL (3.5-5.0); Albumin Globulin Ratio 0.8 (1.0-2.8); Alkaline Phosphatase 85 U/L (38-126); Aspartate Aminotransferase 65 IU/L (14-36); Bilirubin Total 19.1 mg/dL (0.2-1.3); Blood Urea Nitrogen 18 mg/dL (7-17); Calcium 8.7 mg/dL (8.4-10.2); Carbon Dioxide 24 mmol/L (22-32); Chloride 94 mmol/L (98-107); Estimated Glomerular Filt Rate > 60 mL/min (>60); Globulin 3.3 g/dL (1.7-4.1); Glucose 101 mg/dL (80-110); HEMOLYSIS < 15 (0-50); Potassium 3.9 mmol/L (3.4-5.1); Sodium 124 mmol/L (137-145); Total Protein 6.1 g/dL (6.3-8.2)
[2024-03-17 15:56] LABS: Add Manual Diff / Slide Review NO; Basophils Absolute Auto 0 /uL (0-100); Basophils Percent Auto 0.2 % (0-2); Eosinophils Absolute Auto 400 /uL (0-450); Eosinophils Percent Auto 4.4 % (2-4); Hematocrit 21.7 % (36-46); Hemoglobin 7.9 g/dL (12.0-16.0); Lymphocytes Absolute Auto 800 /uL (1100-4500); Lymphocytes Percent Auto 9.1 % (25-40); Mean Corpuscular HGB Conc 36.2 % (30-36); Mean Corpuscular Hemoglobin 42.4 PG (26-34); Mean Corpuscular Volume 117.1 fL (80-100); Monocytes Absolute Auto 800 /uL (0-900); Monocytes Percent Auto 9.6 % (3-14); Neutrophils Absolute Auto 6600 /uL (1500-7000); Neutrophils Percent Auto 76.7 % (50-75); Platelet Count 77 X10^3/uL (150-400); Red Blood Cell Count 1.86 X10^6/uL (4.0-5.2); Red Cell Distribution Width 16.9 % (11.6-14.8); White Blood Cell Count 8.6 X10^3/uL (4.5-11.0)
[2024-03-17 16:17] LABS: Macrocytosis 1+; Platelet Estimate Decreased on smear
== END ==
PROVIDERS: PCP Physician Assistant; Referring Provider Surgery; Visit Provider Surgery
DX: S81.801D Unspecified open wound, right lower leg, subsequent encounter (principal); S81.801A Unspecified open wound, right lower leg, initial encounter; L98.8 Other specified disorders of the skin and subcutaneous tissue; R60.0 Localized edema; K74.60 Unspecified cirrhosis of liver
CPT/HCPCS: 11042; 36415; 80053; 85025

== ENCOUNTER → 2024-03-19 13:24 | Outpatient (CLI) | payer OTHER, SELFPAY ==
[2024-03-03 00:53] VITALS: BMI 34.5
== END ==
LOC: WC 13:25
PROVIDERS: PCP Physician Assistant; Referring Provider Physician Assistant; Visit Provider Surgery
DX: T81.89XA Other complications of procedures, not elsewhere classified, initial encounter (principal); S81.801A Unspecified open wound, right lower leg, initial encounter; L98.8 Other specified disorders of the skin and subcutaneous tissue; R60.0 Localized edema
CPT/HCPCS: 29581

== ENCOUNTER → 2024-03-24 13:36 | Outpatient (CLI) | payer OTHER, SELFPAY ==
[2024-03-03 00:53] VITALS: BMI 34.5
== END ==
PROVIDERS: PCP Physician Assistant; Referring Provider Physician Assistant; Visit Provider Surgery
DX: T81.89XA Other complications of procedures, not elsewhere classified, initial encounter (principal); S81.801A Unspecified open wound, right lower leg, initial encounter; L98.8 Other specified disorders of the skin and subcutaneous tissue; R60.0 Localized edema; K74.60 Unspecified cirrhosis of liver
CPT/HCPCS: 11042

== ENCOUNTER → 2024-03-26 11:32 | Outpatient (CLI) | payer OTHER, SELFPAY ==
[2024-03-03 00:53] VITALS: BMI 34.5
== END ==
LOC: WC 11:36
PROVIDERS: PCP Physician Assistant; Referring Provider Physician Assistant; Visit Provider Surgery
DX: T81.89XA Other complications of procedures, not elsewhere classified, initial encounter (principal); S81.801A Unspecified open wound, right lower leg, initial encounter; L98.8 Other specified disorders of the skin and subcutaneous tissue; R60.0 Localized edema
CPT/HCPCS: 99213

== ENCOUNTER → 2024-03-29 10:17 | Outpatient (CLI) | payer OTHER, SELFPAY ==
[2024-03-03 00:53] VITALS: BMI 34.5
== END ==
LOC: WC 10:18
PROVIDERS: PCP Physician Assistant; Referring Provider Physician Assistant; Visit Provider Surgery
DX: T81.89XA Other complications of procedures, not elsewhere classified, initial encounter (principal); S81.801A Unspecified open wound, right lower leg, initial encounter; L98.8 Other specified disorders of the skin and subcutaneous tissue; R60.0 Localized edema; K74.69 Other cirrhosis of liver; D69.6 Thrombocytopenia, unspecified; Z79.01 Long term (current) use of anticoagulants
CPT/HCPCS: 11042

== ENCOUNTER → 2024-04-01 14:28 | Outpatient (CLI) | payer OTHER, SELFPAY ==
[2024-03-03 00:53] VITALS: BMI 34.5
== END ==
LOC: WC 14:30
PROVIDERS: PCP Physician Assistant; Referring Provider Physician Assistant; Visit Provider Surgery
DX: T81.89XA Other complications of procedures, not elsewhere classified, initial encounter (principal); S81.801A Unspecified open wound, right lower leg, initial encounter; L98.8 Other specified disorders of the skin and subcutaneous tissue; R60.0 Localized edema
CPT/HCPCS: 29581

== ENCOUNTER → 2024-04-05 14:35 | Outpatient (CLI) | payer OTHER, SELFPAY ==
[2024-03-03 00:53] VITALS: BMI 34.5
== END ==
LOC: WC 14:35
PROVIDERS: PCP Physician Assistant; Referring Provider Physician Assistant; Visit Provider Surgery
DX: T81.89XA Other complications of procedures, not elsewhere classified, initial encounter (principal); S81.801A Unspecified open wound, right lower leg, initial encounter; L98.8 Other specified disorders of the skin and subcutaneous tissue; R60.0 Localized edema; K70.30 Alcoholic cirrhosis of liver without ascites; D68.4 Acquired coagulation factor deficiency; R17 Unspecified jaundice
CPT/HCPCS: 11042

== ENCOUNTER → 2024-04-08 13:47 | Outpatient (CLI) | payer OTHER, SELFPAY ==
[2024-03-03 00:53] VITALS: BMI 34.5
== END ==
LOC: WC 13:48
PROVIDERS: PCP Physician Assistant; Referring Provider Physician Assistant; Visit Provider Surgery
DX: T81.89XA Other complications of procedures, not elsewhere classified, initial encounter (principal); S81.801A Unspecified open wound, right lower leg, initial encounter; L98.8 Other specified disorders of the skin and subcutaneous tissue; R60.0 Localized edema
CPT/HCPCS: 29581

== ENCOUNTER → 2024-04-12 13:50 | Outpatient (CLI) | payer OTHER, SELFPAY ==
[2024-03-03 00:53] VITALS: BMI 34.5
== END ==
LOC: WC 13:51
PROVIDERS: PCP Physician Assistant; Referring Provider Physician Assistant; Visit Provider Surgery
DX: T81.89XA Other complications of procedures, not elsewhere classified, initial encounter (principal); L98.8 Other specified disorders of the skin and subcutaneous tissue; S81.801A Unspecified open wound, right lower leg, initial encounter; R60.0 Localized edema; K70.30 Alcoholic cirrhosis of liver without ascites; D69.6 Thrombocytopenia, unspecified
CPT/HCPCS: 11042

== ENCOUNTER → 2024-04-16 13:36 | Outpatient (CLI) | payer OTHER, SELFPAY ==
[2024-03-03 00:53] VITALS: BMI 34.5
== END ==
LOC: WC 13:36
PROVIDERS: PCP Physician Assistant; Referring Provider Physician Assistant; Visit Provider Physician Assistant
DX: T81.89XA Other complications of procedures, not elsewhere classified, initial encounter (principal); S81.801A Unspecified open wound, right lower leg, initial encounter; L98.8 Other specified disorders of the skin and subcutaneous tissue; R60.0 Localized edema
CPT/HCPCS: 29581

== ENCOUNTER → 2024-04-19 13:26 | Outpatient (CLI) | payer OTHER, SELFPAY ==
[2024-03-03 00:53] VITALS: BMI 34.5
== END ==
PROVIDERS: PCP Physician Assistant; Referring Provider Physician Assistant; Visit Provider Surgery
DX: T81.89XA Other complications of procedures, not elsewhere classified, initial encounter (principal); L98.8 Other specified disorders of the skin and subcutaneous tissue; R60.0 Localized edema; D64.9 Anemia, unspecified; K70.30 Alcoholic cirrhosis of liver without ascites; D68.4 Acquired coagulation factor deficiency
CPT/HCPCS: 11042; 99213

== ENCOUNTER 2024-04-20 14:05 | Emergency (ER) | payer OTHER, SELFPAY ==
[2024-03-03 00:53] VITALS: BMI 34.5
[2024-04-20] VITALS (11 sets, daily range): BP systolic 105–121; BP diastolic 52–57; PULSE 75–83; RESP 11–18; TEMP 36.2; O2SAT 97–100; BMI 34.3
--- NOTE | 2024-04-20 14:41 | DI.RAD.S_ITS ---
PROCEDURE: XR CHEST 1V INDICATIONS: Shortness of breath TECHNIQUE: One view of the chest was acquired. COMPARISON: [facility], CR, XR CHEST 1V, 03/03/2024, 14:01. FINDINGS: Surgical changes and devices: None. Lungs and pleura: There is pulmonary vascular congestion. Ill-defined airspace opacities are seen in bilateral infrahilar region.. No pleural effusions or pneumothorax. Mediastinum: Mediastinal contours appear normal. Heart size is enlarged. Bones and chest wall: No suspicious bony lesions. Overlying soft tissues appear unremarkable. IMPRESSION: Cardiomegaly and mild congestion. Cannot rule out underlying bilateral infrahilar infiltrates lobe versus atelectasis. No significant pleural effusion or pneumothorax. Dictated by: Jared Dykes M.D. on 04/20/2024 at 15:58 Approved by: Jared Dykes M.D. on 04/20/2024 at 16:10
--- NOTE | 2024-04-20 14:41 | EKG_ITS ---
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
[2024-04-20 16:30] LABS: Add Manual Diff / Slide Review NO; Basophils Absolute Auto 100 /uL (0-100); Eosinophils Absolute Auto 200 /uL (0-450); Hemoglobin 8.5 g/dL (12.0-16.0); Lymphocytes Absolute Auto 1100 /uL (1100-4500); Monocytes Absolute Auto 800 /uL (0-900); Neutrophils Absolute Auto 5700 /uL (1500-7000)
[2024-04-20 16:36] LABS: INR 2.2 (0.9-1.3); Prothrombin Time 24.6 SECONDS (9.4-12.5)
[2024-04-20 16:40] LABS: Ammonia (NH3) 9 umol/L (9-30); Lactate (Lactic Acid) 1.1 mmol/L (0.7-2.1)
[2024-04-20 16:41] LABS: Alanine Aminotransferase 36 IU/L (<35); Albumin 3.3 g/dL (3.5-5.0); Albumin Globulin Ratio 0.9 (1.0-2.8); Alkaline Phosphatase 121 U/L (38-126); Aspartate Aminotransferase 73 IU/L (14-36); BUN Creatinine Ratio 38.9 (6-22); Bilirubin Total 13.8 mg/dL (0.2-1.3); Blood Urea Nitrogen 21 mg/dL (7-17); Calcium 8.8 mg/dL (8.4-10.2); Carbon Dioxide 25 mmol/L (22-32); Chloride 96 mmol/L (98-107); Estimated Glomerular Filt Rate > 60 mL/min (>60); Globulin 3.6 g/dL (1.7-4.1); Glucose 101 mg/dL (80-110); HEMOLYSIS < 15 (0-50); Potassium 4.4 mmol/L (3.4-5.1); Sodium 128 mmol/L (137-145); Total Protein 6.9 g/dL (6.3-8.2)
[2024-04-20 16:53] LABS: NT-proBNP (BNP-Adult 18+) 455 pg/mL (<125); Troponin I 0.012 ng/mL (0.01-0.034)
[2024-04-20 17:08] LABS: Red Blood Cell Count 2.07 X10^6/uL (4.0-5.2); White Blood Cell Count 7.6 X10^3/uL (4.5-11.0)
[2024-04-20 17:09] LABS: Basophils Percent Auto 0.5 % (0-2); Eosinophils Percent Auto 2.5 % (2-4); Hematocrit 23.9 % (36-46); Lymphocytes Percent Auto 14.2 % (25-40); Mean Corpuscular HGB Conc 35.6 % (30-36); Mean Corpuscular Hemoglobin 41.2 PG (26-34); Mean Corpuscular Volume 115.6 fL (80-100); Monocytes Percent Auto 8.9 % (3-14); Neutrophils Percent Auto 73.9 % (50-75); Platelet Count 90 X10^3/uL (150-400); Red Cell Distribution Width 13.6 % (11.6-14.8)
[2024-04-20 18:11] LABS: Acanthocytes 1+; Anisocytosis 1+; Macrocytosis 2+; Smudge Cells 1+
--- NOTE | 2024-04-20 18:22 | DI.CT.S_ITS ---
PROCEDURE: CT HEAD/BRAIN WO CON INDICATIONS: headache and confusion TECHNIQUE: Noncontrast 4.5 mm thick angled axial sections acquired from the foramen magnum to the vertex, with coronal and sagittal reformats. For radiation dose reduction, the following was used: automated exposure control, adjustment of mA and/or kV according to patient size. COMPARISON: [facility], CR, XR CHEST 1V, 04/20/2024, 14:51. Outside Film, CT, CT HEAD WITHOUT CONTRAST, 07/09/2023, 1:20. [facility], CT, CT HEAD/BRAIN WO CON, 03/02/2024, 21:14. FINDINGS: Image quality: Diagnostic. CSF spaces: Basal cisterns are patent. No extra-axial fluid collections. The ventricles are symmetric in size and shape. Brain: No intracranial bleeds or masses. There is cerebral volume loss for age, with resultant ventricular and sulcal prominence. There are periventricular and deep white matter chronic small vessel ischemic changes. There is intracranial internal carotid artery atherosclerosis. Skull and face: Calvarium and visualized facial bones appear intact, without suspicious lesions. Incidental note is made of hyperostosis frontalis. This is not considered to be pathologic in a woman of this age. Sinuses: Visualized sinuses and mastoids are clear. IMPRESSION: No imaging explanation is found for this patient's presenting symptoms. No acute intracranial hemorrhage is seen. To the limits of this noncontrast study, no findings of intracranial masses or mass effect can be seen. Dictated by: Paulino Carter M.D. on 04/20/2024 at 17:28 Approved by: Paulino Carter M.D. on 04/20/2024 at 17:29
[2024-04-20 18:43] LABS: Creatine Kinase 39 U/L (30-135)
[2024-04-20 19:14] LABS: Creatine Kinase 35 U/L (30-135)
[2024-04-20 19:27] LABS: Troponin I 0.014 ng/mL (0.01-0.034)
--- NOTE | 2024-04-20 19:46 | ED_ITS ---
HPI - General Adult General Chief complaint: Shortness of Breath/Dyspnea Stated complaint: headache, lft arm px, just not feeling well Time Seen by Provider: 04/20/24 18:01 Source: patient and family Mode of arrival: Ambulatory History of Present Illness HPI narrative: Patient is a 68-year-old female. History of cirrhosis. Is scheduled to see the [facility] to discuss potential liver transplant. Is here for evaluation of multiple symptoms to include headache, left forearm pain, generally not feeling very well. She denies chest pain, shortness of breath, abdominal pain, change in bowel habits, no urinary symptoms. She does have a healing wound on her right lower extremity that she sees Wound Care for. Her last evaluation by wound care was yesterday. Her symptoms began yesterday. She states that she has been eating and drinking well. Also sleeping well but has not gotten a lot of exercise recently. Related Data Home Medications Medication Instructions Recorded Confirmed vitamin E 1 tab PO DAILY 09/24/23 03/03/24 cholecalciferol (vitamin D3) 25 1,000 unit PO DAILY 03/03/24 03/03/24 mcg (1,000 unit) tablet (Vitamin D3) furosemide 40 mg tablet 40 mg PO DAILY 03/03/24 03/03/24 oxycodone 5 mg tablet 5 mg PO Q4H PRN pain 03/03/24 03/03/24 spironolactone 50 mg tablet 50 mg 3XW 03/03/24 03/03/24 Previous Rx's Medication Instructions Recorded ciprofloxacin HCl 500 mg tablet 500 mg PO BID #26 tabs 03/06/24 (Cipro) Allergies Allergy/AdvReac Type Severity Reaction Status Date / Time sulfamethoxazole Allergy Mild Hives Verified 03/02/24 20:26 [From Bactrim] trimethoprim [From Bactrim] Allergy Mild Hives Verified 03/02/24 20:26 Review of Systems Review of Systems ROS Unobtainable: All systems reviewed & are unremarkable except as noted in HPI and below Patient History Medical History Gallstones Normal colonoscopy Normocytic anemia Alcoholic cirrhosis Hepatitis B Family History Other Colon cancer Stomach cancer Social History household members: spouse and children Smoking Status: Never smoker alcohol intake: never Smoking Status: Never smoker Substance Use Type: does not use Exam Initial Vital Signs Initial Vital Signs: Vital Signs Temperature 97.2 F L 04/20/24 14:33 Pulse Rate 83 04/20/24 14:33 Respiratory Rate 18 04/20/24 14:33 Blood Pressure 121/56 L 04/20/24 14:33 Pulse Oximetry 99 04/20/24 14:33 Oxygen Delivery Method Room Air 04/20/24 14:33 Const General: cooperative and ill appearing (Chronically ill-appearing) HENMT Head: normal to inspection and normocephalic Resp Effort & Inspection: normal respiratory effort Auscultation: clear to auscultation bilaterally Cardio Rate: regular rate Rhythm: regular rhythm Skin General: jaundice Neuro General: patient alert, patient awake, patient oriented x3 and moves all extremities Extrem General: capillary refill normal Scores GCS Naeem coma scale eye opening: Spontaneous Naeem coma scale verbal response: Orientated Naeem coma scale motor response: Obey commands Naeem coma scale total score: 15 Course Orders Ordered: ED Orders 04/20/24 14:41 XR chest 1V Stat EKG-12 Lead Stat Measure peak expiratory flow ONCE RT Consult Eval and Treat NOW 04/20/24 16:18 Ammonia (NH3) Stat Complete Blood Count AUTO DIFF Stat Comprehensive Metabolic Panel Stat Lactate (Lactic Acid) Stat NT-proBNP (BNP-Adult 18+) Stat Prothrombin Time INR Stat Troponin I Stat 04/20/24 16:22 Creatine Kinase Stat 04/20/24 18:22 CT head/brain wo con Stat 04/20/24 18:56 Troponin & CK Cardiac Panel Stat Vital Signs Vital signs: Vital Signs - 8 hr 04/20/24 16:00 04/20/24 16:00 04/20/24 16:30 Pulse Rate 77 Respiratory Rate Blood Pressure 105/52 L 106/53 L Pulse Oximetry 98 Oxygen Delivery Method 04/20/24 16:30 04/20/24 17:00 04/20/24 17:00 Pulse Rate 76 75 Respiratory Rate 11 L 11 L Blood Pressure 109/55 L Pulse Oximetry 97 98 Oxygen Delivery Method Room Air 04/20/24 17:30 04/20/24 17:30 04/20/24 18:00 Pulse Rate 80 79 Respiratory Rate 12 13 Blood Pressure 109/53 L Pulse Oximetry 100 99 Oxygen Delivery Method 04/20/24 18:00 04/20/24 18:30 04/20/24 18:31 Pulse Rate 81 80 Respiratory Rate 14 13 Blood Pressure 111/56 L Pulse Oximetry 99 100 Oxygen Delivery Method 04/20/24 18:31 04/20/24 19:00 04/20/24 19:00 Pulse Rate 78 Respiratory Rate 11 L Blood Pressure 109/53 L 112/56 L Pulse Oximetry 98 Oxygen Delivery Method 04/20/24 19:30 04/20/24 19:30 Pulse Rate 78 Respiratory Rate 12 Blood Pressure 115/57 L Pulse Oximetry 97 Oxygen Delivery Method Room Air Medical Decision Making Medical Records Medical records reviewed: Yes I reviewed the patient's medical records. Lab Data Lab results reviewed: Yes I reviewed the patient's lab results. 04/20/24 16:18 04/20/24 16:18 Labs: Lab Results 04/20/24 04/20/24 04/20/24 Range/Units 16:18 16:22 18:56 WBC 7.6 (4.5-11.0) X10^3/uL RBC 2.07 L (4.0-5.2) X10^6/uL Hgb 8.5 L (12.0-16.0) g/dL Hct 23.9 L (36-46) % MCV 115.6 H (80-100) fL MCH 41.2 H (26-34) PG MCHC 35.6 (30-36) % RDW 13.6 (11.6-14.8) % Plt Count 90 L (150-400) X10^3/uL Neut % (Auto) 73.9 (50-75) % Lymph % (Auto) 14.2 L (25-40) % [place] % (Auto) 8.9 (3-14) % Eos % (Auto) 2.5 (2-4) % Baso % (Auto) 0.5 (0-2) % Neut # (Auto) 5700 (9016-7194) /uL Lymph # (Auto) 1100 (6752-7868) /uL [place] # (Auto) 800 (0-900) /uL Eos # (Auto) 200 (0-450) /uL Baso # (Auto) 100 (0-100) /uL [place] Cells 1+ H RBC Morphology See below Anisocytosis 1+ H Macrocytosis 2+ H Acanthocytes (Spur) 1+ H PT 24.6 H (9.4-12.5) SECONDS INR 2.2 H (0.9-1.3) Sodium 128 L (137-145) mmol/L Potassium 4.4 (3.4-5.1) mmol/L Chloride 96 L (98-107) mmol/L Carbon Dioxide 25 (22-32) mmol/L BUN 21 H (7-17) mg/dL Creatinine 0.54 (0.52-1.04) mg/dL Estimated GFR > 60 (>60) mL/min BUN/Creatinine Ratio 38.9 H (6-22) Glucose 101 (80-110) mg/dL Lactate 1.1 (0.7-2.1) mmol/L Calcium 8.8 (8.4-10.2) mg/dL Total Bilirubin 13.8 H (0.2-1.3) mg/dL AST 73 H (14-36) IU/L ALT 36 H (<35) IU/L Alkaline Phosphatase 121 (38-126) U/L Ammonia 9 (9-30) umol/L Total Creatine Kinase 39 35 (30-135) U/L Troponin I 0.012 Cancelled 0.014 (0.01-0.034) ng/mL NT-Pro-B Natriuret Pep 455 H (<125) pg/mL Total Protein 6.9 (6.3-8.2) g/dL Albumin 3.3 L (3.5-5.0) g/dL Globulin 3.6 (1.7-4.1) g/dL Albumin/Globulin Ratio 0.9 L (1.0-2.8) Urine Dip Bedside Urine Glucose Negative Bedside Urine Bilirubin - Negative Bedside Urine Ketone - Negative Urine Specific [place] 1.010 Bedside Urine Occult Blood - Negative Bedside Urine pH 6.5 Bedside Urine Protein - Negative Bedside Urine Urobilinogen +/- 1mg Bedside Urine Nitrite - Negative Bedside Urine Leukocytes - Negative Esterase Point of care testing: Urine Dip Bedside Urine Glucose Negative Bedside Urine Bilirubin - Negative Bedside Urine Ketone - Negative Urine Specific [place] 1.010 Bedside Urine Occult Blood - Negative Bedside Urine pH 6.5 Bedside Urine Protein - Negative Bedside Urine Urobilinogen +/- 1mg Bedside Urine Nitrite - Negative Bedside Urine Leukocytes - Negative Esterase Imaging Data Chest x-ray: Radiologist's Impression: PROCEDURE: XR CHEST 1V INDICATIONS: Shortness of breath TECHNIQUE: One view of the chest was acquired. COMPARISON: [facility], CR, XR CHEST 1V, 03/03/2024, 14:01. FINDINGS: Surgical changes and devices: None. Lungs and pleura: There is pulmonary vascular congestion. Ill-defined airspace opacities are seen in bilateral infrahilar region.. No pleural effusions or pneumothorax. Mediastinum: Mediastinal contours appear normal. Heart size is enlarged. Bones and chest wall: No suspicious bony lesions. Overlying soft tissues appear unremarkable. IMPRESSION: Cardiomegaly and mild congestion. Cannot rule out underlying bilateral infrahilar infiltrates lobe versus atelectasis. No significant pleural effusion or pneumothorax. CT scan - head: Radiologist's Impression: PROCEDURE: CT HEAD/BRAIN WO CON INDICATIONS: headache and confusion TECHNIQUE: Noncontrast 4.5 mm thick angled axial sections acquired from the foramen magnum to the vertex, with coronal and sagittal reformats. For radiation dose reduction, the following was used: automated exposure control, adjustment of mA and/or kV according to patient size. COMPARISON: [facility], CR, XR CHEST 1V, 04/20/2024, 14:51. Outside Film, CT, CT HEAD WITHOUT CONTRAST, 07/09/2023, 1:20. [facility], CT, CT HEAD/BRAIN WO CON, 03/02/2024, 21:14. FINDINGS: Image quality: Diagnostic. CSF spaces: Basal cisterns are patent. No extra-axial fluid collections. The ventricles are symmetric in size and shape. Brain: No intracranial bleeds or masses. There is cerebral volume loss for age, with resultant ventricular and sulcal prominence. There are periventricular and deep white matter chronic small vessel ischemic changes. There is intracranial internal carotid artery atherosclerosis. Skull and face: Calvarium and visualized facial bones appear intact, without suspicious lesions. Incidental note is made of hyperostosis frontalis. This is not considered to be pathologic in a woman of this age. Sinuses: Visualized sinuses and mastoids are clear. IMPRESSION: No imaging explanation is found for this patient's presenting symptoms. No acute intracranial hemorrhage is seen. To the limits of this noncontrast study, no findings of intracranial masses or mass effect can be seen. ECG Data Attestation: I personally reviewed and interpreted this ECG as follows: Interpretation: Sinus rhythm Ventricular rate of 81 Normal axis Normal QRS Nonspecific ST T wave changes MDM Narrative Medical decision making narrative: At the time of my evaluation the patient states she was feeling somewhat better she was tolerating oral intake. Was able to ambulate to the bathroom. She was jaundiced but this is baseline. Her liver function tests and bilirubin are actually somewhat better they have been. There was no specific source of infection found on her workup or on her exam. Her ammonia level is normal. Head CT is unremarkable. Her physical exam is not consistent with pneumonia. I did not evaluate the wound on her right lower extremity but she states that she just saw wound care yesterday and they told her that things seemed to be improving nicely in the expected to completely heal within the next couple weeks. Patient was reassured by her workup today. Her anemia is baseline. He was no indication for admission to the hospital. Patient would like to go home. Will discharge home with return precautions. She expressed understanding and agreement with plan. Discharge Plan Departure Patient Disposition: Home Clinical Impression: Cirrhosis, Jaundice, Malaise Instructions: DI for Fatigue Activity Restrictions/Additional Instructions: Recommend that you continue to take all of your medications as directed. Contact your primary care doctor for a follow-up. Keep all of your scheduled medical appointments. Return to the emergency department for new or worsening symptoms. Prescriptions: No Action vitamin E 1 tab PO DAILY oxycodone 5 mg tablet 5 mg PO Q4H PRN (Reason: pain) furosemide 40 mg tablet 40 mg PO DAILY spironolactone 50 mg Tablet 50 mg 3XW cholecalciferol (vitamin D3) [Vitamin D3] 25 mcg (1,000 unit) Tablet 1,000 unit PO DAILY ciprofloxacin HCl [Cipro] 500 mg tablet 500 mg PO BID Qty: 26 0RF Referrals: Audrey Hill PA-C [Primary Care Provider] - Stand Alone Forms: Patient Portal/API/Survey
== END 2024-04-20 19:54 | disposition home or self-care (01) ==
PROVIDERS: Emergency Medicine; Emergency Provider Emergency Medicine; PCP Physician Assistant
DX: K74.60 Unspecified cirrhosis of liver (principal); R17 Unspecified jaundice; R53.81 Other malaise; R06.02 Shortness of breath; R41.0 Disorientation, unspecified; I51.7 Cardiomegaly; R40.2412 Glasgow coma scale score 13-15, at arrival to emergency department; R79.89 Other specified abnormal findings of blood chemistry
CPT/HCPCS: 36415; 70450; 71045; 80053; 81003; 82140; 82550; 83605; 83880; 84484; 85025; 85610; 93005; 99284

== ENCOUNTER → 2024-04-22 13:08 | Outpatient (CLI) | payer OTHER, SELFPAY ==
[2024-03-03 00:53] VITALS: BMI 34.5
== END ==
LOC: WC 13:09
PROVIDERS: PCP Physician Assistant; Referring Provider Physician Assistant; Visit Provider Physician Assistant
DX: T81.89XA Other complications of procedures, not elsewhere classified, initial encounter (principal); S81.801A Unspecified open wound, right lower leg, initial encounter; R60.0 Localized edema
CPT/HCPCS: 29581

== ENCOUNTER → 2024-04-26 11:06 | Outpatient (CLI) | payer OTHER, SELFPAY ==
[2024-03-03 00:53] VITALS: BMI 34.5
== END ==
PROVIDERS: PCP Physician Assistant; Referring Provider Physician Assistant; Visit Provider Surgery
DX: T81.89XA Other complications of procedures, not elsewhere classified, initial encounter (principal); L98.8 Other specified disorders of the skin and subcutaneous tissue; S81.801A Unspecified open wound, right lower leg, initial encounter; R60.0 Localized edema; K70.30 Alcoholic cirrhosis of liver without ascites; D68.4 Acquired coagulation factor deficiency
CPT/HCPCS: 11042

== ENCOUNTER → 2024-04-29 13:13 | Outpatient (CLI) | payer OTHER, SELFPAY ==
[2024-03-03 00:53] VITALS: BMI 34.5
== END ==
PROVIDERS: PCP Physician Assistant; Referring Provider Physician Assistant; Visit Provider Surgery
DX: T81.89XA Other complications of procedures, not elsewhere classified, initial encounter (principal); S81.801A Unspecified open wound, right lower leg, initial encounter; R60.0 Localized edema
CPT/HCPCS: 29581; 99212

== ENCOUNTER → 2024-05-03 11:07 | Outpatient (CLI) | payer OTHER, SELFPAY ==
[2024-03-03 00:53] VITALS: BMI 34.5
== END ==
PROVIDERS: PCP Physician Assistant; Referring Provider Physician Assistant; Visit Provider Surgery
DX: T81.89XA Other complications of procedures, not elsewhere classified, initial encounter (principal); L98.8 Other specified disorders of the skin and subcutaneous tissue; S81.801A Unspecified open wound, right lower leg, initial encounter; R60.0 Localized edema; K70.30 Alcoholic cirrhosis of liver without ascites; Z79.01 Long term (current) use of anticoagulants; D64.9 Anemia, unspecified
CPT/HCPCS: 11042

== ENCOUNTER → 2024-05-06 11:08 | Outpatient (CLI) | payer OTHER, SELFPAY ==
[2024-03-03 00:53] VITALS: BMI 34.5
== END ==
PROVIDERS: PCP Physician Assistant; Referring Provider Physician Assistant; Visit Provider Surgery
DX: T81.89XA Other complications of procedures, not elsewhere classified, initial encounter (principal); S81.801A Unspecified open wound, right lower leg, initial encounter; R60.0 Localized edema
CPT/HCPCS: 29581

== ENCOUNTER → 2024-05-10 11:01 | Outpatient (CLI) | payer OTHER, SELFPAY ==
[2024-03-03 00:53] VITALS: BMI 34.5
== END ==
PROVIDERS: PCP Physician Assistant; Referring Provider Physician Assistant; Visit Provider Surgery
DX: S81.801A Unspecified open wound, right lower leg, initial encounter (principal); T81.89XA Other complications of procedures, not elsewhere classified, initial encounter; D68.4 Acquired coagulation factor deficiency; R60.0 Localized edema
CPT/HCPCS: 11042; 29581

== ENCOUNTER → 2024-05-13 11:51 | Outpatient (CLI) | payer OTHER, SELFPAY ==
[2024-03-03 00:53] VITALS: BMI 34.5
== END ==
PROVIDERS: PCP Physician Assistant; Referring Provider Physician Assistant; Visit Provider Surgery
DX: L97.812 Non-pressure chronic ulcer of other part of right lower leg with fat layer exposed (principal); I87.2 Venous insufficiency (chronic) (peripheral); R60.0 Localized edema
CPT/HCPCS: 29581

== ENCOUNTER → 2024-05-17 11:01 | Outpatient (CLI) | payer OTHER, SELFPAY ==
[2024-03-03 00:53] VITALS: BMI 34.5
== END ==
PROVIDERS: PCP Physician Assistant; Referring Provider Physician Assistant; Visit Provider Surgery
DX: T81.89XA Other complications of procedures, not elsewhere classified, initial encounter (principal); L98.8 Other specified disorders of the skin and subcutaneous tissue; S81.801A Unspecified open wound, right lower leg, initial encounter; R60.0 Localized edema; K74.60 Unspecified cirrhosis of liver; D64.9 Anemia, unspecified
CPT/HCPCS: 11042; 99213

== ENCOUNTER → 2024-05-19 11:35 | Outpatient (CLI) | payer OTHER, SELFPAY ==
[2024-03-03 00:53] VITALS: BMI 34.5
== END ==
PROVIDERS: PCP Physician Assistant; Referring Provider Physician Assistant; Visit Provider Physician Assistant
DX: T81.89XA Other complications of procedures, not elsewhere classified, initial encounter (principal); L98.8 Other specified disorders of the skin and subcutaneous tissue; S81.801A Unspecified open wound, right lower leg, initial encounter; R60.0 Localized edema
CPT/HCPCS: 29581

== ENCOUNTER → 2024-05-24 08:00 | Outpatient (CLI) | payer OTHER, SELFPAY ==
[2024-03-03 00:53] VITALS: BMI 34.5
== END ==
LOC: WC 06-07 11:36
PROVIDERS: Family Provider Physician Assistant; PCP Physician Assistant; Referring Provider Physician Assistant; Visit Provider Surgery
DX: T81.89XA Other complications of procedures, not elsewhere classified, initial encounter (principal); L98.8 Other specified disorders of the skin and subcutaneous tissue; S81.801A Unspecified open wound, right lower leg, initial encounter; R60.0 Localized edema; K74.60 Unspecified cirrhosis of liver
CPT/HCPCS: 11042

== ENCOUNTER → 2024-05-27 11:08 | Outpatient (CLI) | payer OTHER, SELFPAY ==
[2024-03-03 00:53] VITALS: BMI 34.5
== END ==
PROVIDERS: PCP Physician Assistant; Referring Provider Physician Assistant; Visit Provider Surgery
DX: T81.89XA Other complications of procedures, not elsewhere classified, initial encounter (principal); L98.8 Other specified disorders of the skin and subcutaneous tissue; S81.801A Unspecified open wound, right lower leg, initial encounter; R60.0 Localized edema
CPT/HCPCS: 29581

== ENCOUNTER → 2024-05-31 11:19 | Outpatient (CLI) | payer OTHER, SELFPAY ==
[2024-03-03 00:53] VITALS: BMI 34.5
== END ==
LOC: WC 06-03 11:19
PROVIDERS: Family Provider Physician Assistant; PCP Physician Assistant; Referring Provider Physician Assistant; Visit Provider Surgery
DX: T81.89XA Other complications of procedures, not elsewhere classified, initial encounter (principal); L98.8 Other specified disorders of the skin and subcutaneous tissue; S81.801A Unspecified open wound, right lower leg, initial encounter; R60.0 Localized edema; K74.60 Unspecified cirrhosis of liver; D64.9 Anemia, unspecified; D69.6 Thrombocytopenia, unspecified
CPT/HCPCS: 11042

== ENCOUNTER → 2024-06-03 11:20 | Outpatient (CLI) | payer OTHER, SELFPAY ==
[2024-03-03 00:53] VITALS: BMI 34.5
== END ==
PROVIDERS: Family Provider Physician Assistant; PCP Physician Assistant; Referring Provider Physician Assistant; Visit Provider Surgery
DX: T81.89XA Other complications of procedures, not elsewhere classified, initial encounter (principal); R60.0 Localized edema; S81.801A Unspecified open wound, right lower leg, initial encounter
CPT/HCPCS: 29581

== ENCOUNTER → 2024-06-07 10:55 | Outpatient (CLI) | payer OTHER, SELFPAY ==
[2024-03-03 00:53] VITALS: BMI 34.5
== END ==
LOC: WC 10:55
PROVIDERS: Family Provider Physician Assistant; PCP Physician Assistant; Referring Provider Physician Assistant; Visit Provider Surgery
DX: T81.89XA Other complications of procedures, not elsewhere classified, initial encounter (principal); L98.8 Other specified disorders of the skin and subcutaneous tissue; R60.0 Localized edema; S81.801A Unspecified open wound, right lower leg, initial encounter; K74.69 Other cirrhosis of liver; R17 Unspecified jaundice
CPT/HCPCS: 11042

== ENCOUNTER → 2024-06-10 14:56 | Outpatient (CLI) | payer OTHER, SELFPAY ==
[2024-03-03 00:53] VITALS: BMI 34.5
== END ==
PROVIDERS: Family Provider Physician Assistant; PCP Physician Assistant; Referring Provider Physician Assistant; Visit Provider Surgery
DX: T81.89XA Other complications of procedures, not elsewhere classified, initial encounter (principal); L98.8 Other specified disorders of the skin and subcutaneous tissue; S81.801A Unspecified open wound, right lower leg, initial encounter; R60.0 Localized edema
CPT/HCPCS: 29581

== ENCOUNTER → 2024-06-11 10:34 | Outpatient (CLI) | payer OTHER, SELFPAY ==
[2024-03-03 00:53] VITALS: BMI 34.5
--- NOTE | 2024-06-11 10:36 | DI.US.S_ITS ---
PROCEDURE: US ABDOMEN COMPLETE INDICATIONS: ALCOHOLIC CIRRHOSIS W/ANASARCA/CK FOR LIVER/ASCITE TECHNIQUE: Real-time scanning was performed of the abdominal and retroperitoneal organs, with image documentation. COMPARISON: None. FINDINGS: Liver: Liver is normal in size and homogeneous in echotexture. Portal vein appears patent with hepatopetal flow on color Doppler imaging. Gallbladder: Multiple gallstones, wall thickness up to 5 millimeters in thickness without pericholecystic fluid or sonographic Snow sign. Biliary ducts: Intrahepatic bile ducts are non-dilated. Extrahepatic bile duct caliber measures 8 mm. Normal is 6-7 mm or less in diameter, or 10 mm or less post-cholecystectomy. Pancreas: Visualized portions of the pancreas are sonographically normal. Spleen: Spleen is normal in size and homogeneous in echotexture. Kidneys: Kidneys are normal in size and echotexture. Right kidney measures 12.8 cm long; left kidney measures 10.8 cm long. No hydronephrosis or nephrolithiasis. No solid masses. Aorta: Visualized aorta is normal in caliber at less than 3 cm. Iliacs: Proximal common iliac arteries are normal in caliber at less than 2.5 cm. IVC: Intrahepatic inferior vena cava is patent. Miscellaneous: No free abdominal fluid. IMPRESSION: 1. Somewhat coarse hepatic echotexture which can be seen in cirrhosis, nonspecific. Simple appearing hepatic cysts. 2. Cholelithiasis with minimal gallbladder wall thickening, possibly related to gallbladder contraction. No pericholecystic fluid. If cholecystitis is of clinical concern, nuclear medicine hepatobiliary scan can be performed to further evaluate 3. Common bile duct upper limits of normal in size at 8 millimeters in diameter. No intrahepatic biliary ductal dilatation. Choledocholithiasis is of clinical concern further evaluation with MRCP can be performed. Dictated by: Wayne Chacon M.D. on 06/11/2024 at 12:42 Approved by: Wayne Chacon M.D. on 06/11/2024 at 12:48
== END ==
PROVIDERS: Family Provider Physician Assistant; PCP Physician Assistant; Referring Provider Internal Medicine Gastroenterology; Visit Provider Internal Medicine Gastroenterology
DX: K70.31 Alcoholic cirrhosis of liver with ascites (principal); K80.20 Calculus of gallbladder without cholecystitis without obstruction; K76.89 Other specified diseases of liver
CPT/HCPCS: 76700

== ENCOUNTER → 2024-06-14 10:56 | Outpatient (CLI) | payer OTHER, SELFPAY ==
[2024-03-03 00:53] VITALS: BMI 34.5
== END ==
PROVIDERS: Family Provider Physician Assistant; PCP Physician Assistant; Referring Provider Physician Assistant; Visit Provider Physician Assistant
DX: T81.89XA Other complications of procedures, not elsewhere classified, initial encounter (principal); S81.801A Unspecified open wound, right lower leg, initial encounter; R60.0 Localized edema
CPT/HCPCS: 29581

== ENCOUNTER → 2024-06-21 10:54 | Outpatient (CLI) | payer OTHER, SELFPAY ==
[2024-03-03 00:53] VITALS: BMI 34.5
== END ==
LOC: WC 10:55
PROVIDERS: Family Provider Physician Assistant; PCP Physician Assistant; Referring Provider Physician Assistant; Visit Provider Surgery
DX: T81.89XA Other complications of procedures, not elsewhere classified, initial encounter (principal); L98.8 Other specified disorders of the skin and subcutaneous tissue; S81.801A Unspecified open wound, right lower leg, initial encounter; R60.0 Localized edema; D68.4 Acquired coagulation factor deficiency; K70.9 Alcoholic liver disease, unspecified; D64.9 Anemia, unspecified; E66.9 Obesity, unspecified; Z68.41 Body mass index [BMI] 40.0-44.9, adult
CPT/HCPCS: 11042; 99213

== ENCOUNTER → 2024-06-24 10:41 | Outpatient (CLI) | payer OTHER, SELFPAY ==
[2024-03-03 00:53] VITALS: BMI 34.5
== END ==
PROVIDERS: Family Provider Physician Assistant; PCP Physician Assistant; Referring Provider Physician Assistant; Visit Provider Surgery
DX: T81.89XA Other complications of procedures, not elsewhere classified, initial encounter (principal); L98.8 Other specified disorders of the skin and subcutaneous tissue; S81.801A Unspecified open wound, right lower leg, initial encounter; R60.0 Localized edema
CPT/HCPCS: 29581

== ENCOUNTER → 2024-06-28 11:09 | Outpatient (CLI) | payer OTHER, SELFPAY ==
[2024-03-03 00:53] VITALS: BMI 34.5
== END ==
PROVIDERS: Family Provider Physician Assistant; PCP Physician Assistant; Referring Provider Physician Assistant; Visit Provider Surgery
DX: T81.89XA Other complications of procedures, not elsewhere classified, initial encounter (principal); L98.8 Other specified disorders of the skin and subcutaneous tissue; S81.801A Unspecified open wound, right lower leg, initial encounter; R60.0 Localized edema; K70.30 Alcoholic cirrhosis of liver without ascites; D68.4 Acquired coagulation factor deficiency
CPT/HCPCS: 11042